=== PATIENT | female | born 1955 | race Caucasian/White ===

== ENCOUNTER 2019-03-28 06:58 | Outpatient (RCR) | payer OTHER, SELFPAY ==
[2019-01-22 07:49] LABS: INR 2.4; Prothrombin Time 25.3 Seconds (9.64-11.0)
[2019-02-21 07:50] LABS: INR 2.6; Prothrombin Time 26.8 Seconds (9.64-11.0)
[2019-03-24 07:47] LABS: INR 1.5; Prothrombin Time 15.8 Seconds (9.64-11.0)
[2019-03-28 07:20] LABS: Prothrombin Time 21.3 Seconds (9.64-11.0)
== END 2019-04-22 23:59 | disposition home or self-care (01) ==
LOC: CHSLAB 06:58
PROVIDERS: PCP Internal Medicine; Visit Provider Internal Medicine
DX: Z79.01 Long term (current) use of anticoagulants (principal)
CPT/HCPCS: 36415; 85610

== ENCOUNTER 2019-06-25 07:35 | Outpatient (RCR) | payer OTHER, SELFPAY ==
[2019-04-25 07:36] LABS: INR 2.6; Prothrombin Time 25.9 Seconds (9.64-11.0)
[2019-05-26 07:37] LABS: INR 2.6
[2019-06-25 08:05] LABS: INR 2.6; Prothrombin Time 26.1 Seconds (9.64-11.0)
== END 2019-07-24 23:59 | disposition home or self-care (01) ==
LOC: CHSLAB 07:35
PROVIDERS: PCP Internal Medicine; Visit Provider Internal Medicine
DX: Z79.01 Long term (current) use of anticoagulants (principal)
CPT/HCPCS: 36415; 85610

== ENCOUNTER 2019-09-22 07:16 | Outpatient (RCR) | payer OTHER, SELFPAY ==
[2019-07-25 07:40] LABS: INR 3.5; Prothrombin Time 34.5 Seconds (9.64-11.0)
[2019-08-25 07:57] LABS: INR 2.5; Prothrombin Time 24.8 Seconds (9.64-11.0)
[2019-09-22 07:40] LABS: INR 3.9; Prothrombin Time 38.3 Seconds (9.64-11.0)
== END 2019-10-23 23:59 | disposition home or self-care (01) ==
LOC: CHSLAB 07:16
PROVIDERS: PCP Internal Medicine; Visit Provider Internal Medicine
DX: Z79.01 Long term (current) use of anticoagulants (principal)
CPT/HCPCS: 36415; 85610

== ENCOUNTER 2019-09-25 14:04 | Outpatient (CLI) | payer OTHER, SELFPAY | END 2019-09-25 14:05 | disposition home or self-care (01) | LOC: CHSIMG 14:05 | PROVIDERS: PCP Internal Medicine; Visit Provider Specialist | DX: I05.9 Rheumatic mitral valve disease, unspecified (principal); Z95.2 Presence of prosthetic heart valve | CPT/HCPCS: 93306 ==

== ENCOUNTER 2019-10-07 12:23 | Outpatient (CLI) | payer OTHER, SELFPAY ==
--- NOTE | 2019-10-07 12:40 | ECG_ITS ---
Measurements Intervals [place] Rate: 97 P: -79 DC: 177 QRS: 98 QRSD: 99 T: 69 QT: 387 QTc: 494 Interpretive Statements ECTOPIC ATRIAL RHYTHM CHANGES TO ATRIAL TACHYCARDIA INCOMPLETE RIGHT BUNDLE BRANCH BLOCK DELAYED PRECORDIAL R/S TRANSITION ABNORMAL ECG Electronically Signed On 10-07-2019 13:06:31 CDT by Michel Sandoval D.O.
[2019-10-07 12:41] LABS: Appearance Urine Clear (Clear); Bilirubin Urine Negative (Negative); Color Urine Yellow (Yellow); Glucose Urine UA Negative (Negative); Ketones Urine Negative (Negative); Leukocyte Esterase Ur Negative (Negative); Nitrate Urine Negative (Negative); Protein Urine Negative (Negative); Specific Grav Ur 1.015 (1.010-1.020); Urobilinogen Urine 0.2 mg/dL (0.2-1.0); pH Urine 5.5 (5.0-8.0)
[2019-10-07 12:43] LABS: Basophils Absolute Auto 0.03 K/mm3 (0.00-0.10); Basophils Percent Auto 0.6 % (0.0-1.0); Eosinophils Absolute Auto 0.08 K/mm3 (0.02-0.50); Eosinophils Percent Auto 1.7 % (1.0-6.0); Hematocrit 44.3 % (35.0-49.0); Hemoglobin 14.2 g/dL (12.0-15.0); Immature Granulocyte Absolute 0.01 K/mm3 (0.00-0.00); Immature Granulocyte Percent A 0.2 % (0.0-0.0); Lymphocytes Absolute Auto 1.21 K/mm3 (1.10-4.50); Lymphocytes Percent Auto 25.1 % (18.0-42.0); Mean Corpuscular HGB Conc 32.1 g/dL (32.0-36.0); Mean Corpuscular Hemoglobin 30.3 pg (27.0-31.0); Mean Corpuscular Volume 94.7 fL (78.0-102.0); Mean Platelet Volume 10.3 fl (9.2-11.8); Monocytes Absolute Auto 0.26 K/mm3 (0.10-0.90); Monocytes Percent Auto 5.4 % (2.0-11.0); Neutrophils Absolute Auto 3.2 K/mm3 (1.7-7.2); Platelet Count Result 282 K/mm3 (150-420); Red Blood Count 4.68 M/mm3 (4.20-5.40); Red Cell Distribution Width 12.6 % (11.6-14.4); White Blood Count 4.8 K/mm3 (4.8-10.8)
[2019-10-07 13:06] LABS: BNP 73.2 pg/mL (0-100)
[2019-10-07 13:41] LABS: Add Urine Microscopic? YES; Blood Urine Trace-Intact (Negative); RBC Urine 0-2 /hpf (0-2)
[2019-10-07 13:42] LABS: Squamous Epithelial Cell Urine Rare /hpf (Few); WBC Urine 0-3 /hpf (0-3)
[2019-10-07 13:43] LABS: Bacteria Urine Trace /hpf
[2019-10-07 13:45] LABS: Alanine Aminotransferase 28 U/L (14-59); Albumin Level 4.4 g/dL (3.4-5.0); Alkaline Phosphatase 72 U/L (46-116); Anion Gap 10.4 mmol/L (7-16); Aspartate Amino Transferase 33 U/L (15-37); Bilirubin,Total 0.9 mg/dL (0.00-1.00); Blood Urea Nitrogen 18 mg/dL (7-18); Calcium 9.6 mg/dL (8.5-10.1); Carbon Dioxide 33 mmol/L (21-32); Chloride 102 mmol/L (98-108); Cholesterol 231 mg/dL (0-200); Estimated Glomerular Filt Rate > 60; Free T3 2.54 pg/mL (2.18-3.98); Free T4 Free Thyroxine 1.14 ng/dL (0.76-1.46); Glucose 91 mg/dL (70-99); HDL Direct 75 mg/dL (40-60); LDL Cholesterol Calculated 133 mg/dL (<130); Magnesium 2.1 mg/dL (1.8-2.4); Osmolality Calculated 293 mOsm/kg (285-295); Potassium 4.4 mmol/L (3.5-5.1); Sodium 141 mmol/L (136-145); Thyroid Stimulating Hormone 2.24 uIU/mL (0.36-3.74); Total Protein 7.2 g/dL (6.4-8.2); Triglycerides 117 mg/dL (0-150)
[2019-10-11 15:10] LABS: Gliadin AB, IgG 3 Units (<20); Reticulin IgA Negative (Negative); TTG IGA AB 1 U/mL (<4)
== END 2019-10-07 12:24 | disposition home or self-care (01) ==
LOC: CHSLAB 12:26
PROVIDERS: PCP Internal Medicine; Visit Provider Internal Medicine
DX: I34.0 Nonrheumatic mitral (valve) insufficiency (principal); I48.91 Unspecified atrial fibrillation; R19.7 Diarrhea, unspecified; R10.9 Unspecified abdominal pain
CPT/HCPCS: 36415; 80053; 80061; 81001; 83516; 83735; 83880; 84439; 84443; 84481; 85025; 85055; 86255; 93005

== ENCOUNTER 2019-10-09 07:45 | Outpatient (CLI) | payer OTHER, SELFPAY | END 2019-10-09 07:46 | disposition home or self-care (01) | PROVIDERS: PCP Internal Medicine; Visit Provider Specialist | DX: I05.9 Rheumatic mitral valve disease, unspecified (principal); Z95.2 Presence of prosthetic heart valve | CPT/HCPCS: 99199; 93308 ==

== ENCOUNTER 2019-10-10 07:15 | Outpatient (CLI) | payer OTHER, SELFPAY ==
--- NOTE | 2019-11-11 08:29 | WPDHOLTEREM ---
Holter/Event Monitor Holter/Event Monitor Date of procedure: 10/10/19 Procedure Type: 30 day event monitor Indications: Palpitations
--- NOTE | 2019-11-19 09:39 | WPDHOLTEREM ---
Holter/Event Monitor Holter/Event Monitor Date of procedure: 10/10/19 Procedure Type: 30 day event monitor Indications: Palpitations Conclusion: 1. 27 days event monitor between 10/10/19-11/08/19. There are 72 available transmissions for analysis. 2. Predominant rhythm is sinus rhythm with intermittent PSVT and PAT. HR range 50-157 bpm; average HR 84 bpm. 3. There are intermittent premature supraventricular complexes with total burden of 5%. Atrial tachycardia or supraventricular tachycardia occurred 14 times with fastest at 157 bpm and the longest lasting 40 beats. 4. There are occasional premature ventricular complexes with total burden of 1%. No ventricular tachycardia. 5. No significant pauses greater than 2 seconds. 6. Patient reports 28 symptoms of shortness of breath, skipped beats, lightheadedness, heart racing, and symptoms other than listed which demonstrate sinus rhythm, HR range 82-143 bpm and 6 episodes of PSVT/atrial tachycardia with HR range 122-138 bpm.
== END 2019-10-10 07:16 | disposition home or self-care (01) ==
PROVIDERS: PCP Internal Medicine; Visit Provider Specialist
DX: R00.2 Palpitations (principal)
CPT/HCPCS: 93270

== ENCOUNTER 2019-10-17 07:29 | Outpatient (CLI) | payer OTHER, SELFPAY ==
--- NOTE | ~2019-10-17 | CT_ITS ---
EXAMINATION: CT abdomen pelvis w con DATE: 10/17/2019 08:17 INDICATION: Change in bowel habits. Intermittent constipation and diarrhea. Bilateral anterior pelvic pain. TECHNIQUE: Computed tomography (CT) of the abdomen and pelvis was performed with 100 cc Omnipaque 350 intravenous contrast. Automated exposure control and iterative reconstruction technique were employe d. Exam dose: 211.61 mGy-cm total exam DLP. COMPARISON: 11/06/2015 CT abdomen pelvis FINDINGS: Mild emphysematous changes are suggested. No infiltrate or consolidation in the lower lung zones. Heart size is within normal range. No pericardial or pleural effusion. Approximately 11.5 mm posterior right hepatic dome hypoattenuating lesion. There is an approximately 7.5 mm hypoattenuating lesion of the medial segment of the left hepatic lobe. These lesions were pres ent at on 11/06/2015 CT abdomen pelvis examination. These are most likely hepatic cysts or hemangiomas if there is no known malignancy. No other hepatic space-occupying mass lesion is evident. The gallbladder is present. No bile duct or pancreatic duct dilatation. No pancreatic mass lesion or calcification. No splenic mass lesion or splenomegaly. There is an approximately 7.6 cm upper pole left cyst with internal calcification of the wall again n oted. No renal mass lesion is evident. No urinary tract calculus or hydroureteronephrosis. The urinary blad roopa is unremarkable. Status post hysterectomy. There is atherosclerotic calcification but normal caliber of the abdominal aorta; no abdominal aortic aneurysm. No intraperitoneal or retroperitoneal or pelvic mass lesion or adenopathy or ascites is evident. Diverticulosis of the colon; no CT evidence of diverticulitis is detected. No bowel obstruction or in traperitoneal free air is evident. No suspicious osteolytic or osteoblastic lesions are noted. IMPRESSION: 2 chronic hypoattenuating hepatic lesions, statistically most likely cysts or hemangioma s in the absence of any known malignancy 7.6 cm upper pole left renal cyst Status post hysterectomy Diverticulosis of the colon Reviewed, dictated and finalized at Location A. Reviewed, dictated and finalized at location A. IMPRESSION: 2 chronic hypoattenuating hepatic lesions, statistically most like ly cysts or hemangiomas in the absence of any known malignancy 7.6 cm upper pole left renal cyst Status post hysterectomy Diverticulosis of the colon
== END 2019-10-17 07:30 | disposition home or self-care (01) ==
PROVIDERS: PCP Internal Medicine; Visit Provider Internal Medicine
DX: R19.4 Change in bowel habit (principal); R10.2 Pelvic and perineal pain
CPT/HCPCS: 74177; Q9965

== ENCOUNTER 2020-01-20 07:15 | Outpatient (RCR) | payer OTHER, SELFPAY ==
[2019-10-24 07:34] LABS: Prothrombin Time 30.3 Seconds (9.64-11.0)
[2019-11-25 07:32] LABS: INR 3.8; Prothrombin Time 37.8 Seconds (9.64-11.0)
[2019-12-09 07:55] LABS: Prothrombin Time 39.8 Seconds (9.64-11.0)
[2020-01-20 07:45] LABS: INR 2.6; Prothrombin Time 25.6 Seconds (9.64-11.0)
== END 2020-01-22 23:59 | disposition home or self-care (01) ==
LOC: CHSLAB 07:15
PROVIDERS: PCP Internal Medicine; Visit Provider Internal Medicine
DX: Z79.01 Long term (current) use of anticoagulants (principal)
CPT/HCPCS: 36415; 85610

== ENCOUNTER 2020-04-05 07:05 | Outpatient (CLI) | payer OTHER, MEDICARE, SELFPAY ==
--- NOTE | ~2020-04-05 | MM_ITS ---
EXAMINATION: MM screening negro BI w pan HISTORY: Screening TECHNIQUE: Craniocaudal and mediolateral oblique 3-D tomosynthesis images were obtained and synthetic 2-D images were generated. CAD analysis was submitted and interpreted. COMPARISON: Comparison to multiple prior studies sequentially, with oldest reviewed study dated 10/03. BREAST PARENCHYMAL COMPOSITION: The breasts are extremely dense, which lowers the sensitivity of mamm ography. FINDINGS: There is no evidence of suspicious mass, calcification, or architectural distortion to sugg est malignancy in either breast. There has been no suspicious interval change. IMPRESSION: 1. No mammographic evidence of malignancy. 2. Recommend routine screening mammography in one year. BI-RADS Category 1: Negative Reviewed, dictated and finalized at location A. 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
== END 2020-04-05 07:06 | disposition home or self-care (01) ==
LOC: CHSIMG 07:06
PROVIDERS: PCP Internal Medicine; Visit Provider Internal Medicine
DX: Z12.31 Encounter for screening mammogram for malignant neoplasm of breast (principal)
CPT/HCPCS: 77063; 77067

== ENCOUNTER 2020-04-26 09:51 | Outpatient (RCR) | payer OTHER, MEDICARE, SELFPAY ==
[2020-02-18 08:02] LABS: INR 2.6; Prothrombin Time 26.8 Seconds (9.50-12.10)
[2020-03-24 08:02] LABS: INR 1.5; Prothrombin Time 16.1 Seconds (9.50-12.10)
[2020-03-31 08:04] LABS: INR 2.2; Prothrombin Time 22.9 Seconds (9.50-12.10)
[2020-04-26 10:17] LABS: INR 2.8; Prothrombin Time 28.3 Seconds (9.50-12.10)
== END 2020-05-18 23:59 | disposition home or self-care (01) ==
LOC: CHSLAB 09:51
PROVIDERS: PCP Internal Medicine; Visit Provider Internal Medicine
DX: Z79.01 Long term (current) use of anticoagulants (principal)
CPT/HCPCS: 36415; 85610

== ENCOUNTER 2020-08-17 08:28 | Outpatient (RCR) | payer OTHER, MEDICARE, SELFPAY ==
[2020-05-24 07:50] LABS: INR 2.9; Prothrombin Time 29.5 Seconds (9.50-12.10)
[2020-06-22 10:46] LABS: INR 1.8; Prothrombin Time 18.8 Seconds (9.50-12.10)
[2020-06-29 09:08] LABS: INR 2.1; Prothrombin Time 21.3 Seconds (9.50-12.10)
[2020-07-20 08:28] LABS: INR 2.6; Prothrombin Time 26.8 Seconds (9.50-12.10)
[2020-08-17 08:51] LABS: Prothrombin Time 20.2 Seconds (9.50-12.10)
== END 2020-08-22 23:59 | disposition home or self-care (01) ==
LOC: CHSLAB 08:28
PROVIDERS: PCP Internal Medicine; Visit Provider Internal Medicine
DX: Z79.01 Long term (current) use of anticoagulants (principal)
CPT/HCPCS: 36415; 85610

== ENCOUNTER 2020-10-06 08:02 | Outpatient (CLI) | payer OTHER, MEDICARE, SELFPAY ==
--- NOTE | 2020-11-08 14:09 | WPDHOLTEREM ---
Holter/Event Monitor Holter/Event Monitor Date of procedure: 10/06/20 Holter/Event Procedure: Event Monitor Indications: Syncope Conclusion: 1. 26 days event monitor between 10/06/20-11/04/20. There are 59 available transmissions for analysis. 2. Predominant rhythm is sinus rhythm. HR range 50-151 bpm; average HR is 78 bpm. 3. There are occasional premature supraventricular complexes with total burden of 2%. There are 6 runs of atrial tachycardia, fastest at 143 bpm and longest lasting 31 seconds. 4. There are occasional premature ventricular complexes with total burden of 1%. No ventricular tachycardia. 5. No significant pauses greater than 2 seconds. 6. Patient reports 11 episodes of symptoms of heart racing, shortness of breath, lightheadedness and symptoms other than listed which demonstrate sinus rhythm, HR range 84-127 bpm and 4 episodes of atrial tachycardia at 143 bpm.
== END 2020-10-06 08:03 | disposition home or self-care (01) ==
LOC: CHSCARD 08:05
PROVIDERS: PCP Internal Medicine; Visit Provider Internal Medicine
DX: R55 Syncope and collapse (principal); I48.91 Unspecified atrial fibrillation
CPT/HCPCS: 99199

== ENCOUNTER 2020-10-21 12:29 | Outpatient (CLI) | payer MEDICARE, SELFPAY ==
[2020-10-21 12:54] LABS: Appearance Urine Clear (Clear); Bilirubin Urine Negative (Negative); Color Urine Light Yellow (Yellow); Glucose Urine UA Negative (Negative); Ketones Urine Negative (Negative); Leukocyte Esterase Ur Negative (Negative); Nitrate Urine Negative (Negative); Protein Urine Negative (Negative); Urobilinogen Urine 0.2 mg/dL (0.2-1.0); pH Urine 5.5 (5.0-8.0)
[2020-10-21 12:57] LABS: Add Urine Microscopic? YES; Bacteria Urine Trace /hpf; Blood Urine Trace-lysed (Negative); RBC Urine None seen /hpf (0-2); Squamous Epithelial Cell Urine Rare /hpf (Few); WBC Urine None seen /hpf (0-3)
[2020-10-21 13:00] LABS: Basophils Absolute Auto 0.02 K/mm3 (0.00-0.10); Basophils Percent Auto 0.4 % (0.0-1.0); Eosinophils Absolute Auto 0.05 K/mm3 (0.02-0.50); Hematocrit 44.2 % (35.0-42.0); Immature Granulocyte Absolute 0.01 K/mm3 (0.00-0.00); Immature Granulocyte Percent A 0.2 % (0.0-0.0); Lymphocytes Absolute Auto 1.36 K/mm3 (1.10-4.50); Lymphocytes Percent Auto 27.1 % (18.0-42.0); Mean Corpuscular HGB Conc 31.7 g/dL (32.0-36.0); Mean Corpuscular Hemoglobin 30.8 pg (27.0-31.0); Mean Corpuscular Volume 97.1 fL (78.0-102.0); Mean Platelet Volume 10.4 fl (9.2-11.8); Monocytes Absolute Auto 0.27 K/mm3 (0.10-0.90); Monocytes Percent Auto 5.4 % (2.0-11.0); Neutrophils Absolute Auto 3.3 K/mm3 (1.7-7.2); Neutrophils Percent Auto 65.9 % (50.0-70.0); Platelet Count Result 251 K/mm3 (150-420); Red Blood Count 4.55 M/mm3 (4.20-5.40)
[2020-10-21 13:07] LABS: INR 2.6; Prothrombin Time 26.8 Seconds (9.50-12.10)
[2020-10-21 13:38] LABS: Alanine Aminotransferase 40 U/L (14-59); Albumin Level 4.5 g/dL (3.4-5.0); Alkaline Phosphatase 91 U/L (46-116); Anion Gap 9 mmol/L (8-16); Aspartate Amino Transferase 37 U/L (15-37); Blood Urea Nitrogen 18 mg/dL (7-18); Calcium 8.8 mg/dL (8.5-10.1); Carbon Dioxide 30 mmol/L (21-32); Chloride 105 mmol/L (98-108); Cholesterol 237 mg/dL (0-200); Estimated Glomerular Filt Rate 57; Free T3 2.58 pg/mL (2.18-3.98); Free T4 Free Thyroxine 0.92 ng/dL (0.76-1.46); Glucose 92 mg/dL (70-99); HDL Direct 78 mg/dL (40-60); LDL Cholesterol Calculated 134 mg/dL (<130); Osmolality Calculated 299 mOsm/kg (285-295); Potassium 4.1 mmol/L (3.5-5.1); Sodium 144 mmol/L (136-145); Total Protein 7.3 g/dL (6.4-8.2); Triglycerides 126 mg/dL (0-150); Vitamin B12 503 pg/mL (193-986)
[2020-10-21 13:59] LABS: Thyroid Stimulating Hormone 1.68 uIU/mL (0.36-3.74)
[2020-10-24 15:25] LABS: RPR Screen Non-Reactive (Non-Reactive)
[2020-10-25 14:47] LABS: Vitamin D 25 Hydroxy 53 ng/mL (30-100)
== END 2020-10-21 12:30 | disposition home or self-care (01) ==
LOC: CHSIMG 12:32
PROVIDERS: PCP Internal Medicine; Visit Provider Internal Medicine
DX: G31.84 Mild cognitive impairment of uncertain or unknown etiology (principal); M81.0 Age-related osteoporosis without current pathological fracture; I34.0 Nonrheumatic mitral (valve) insufficiency; I48.91 Unspecified atrial fibrillation; Z13.6 Encounter for screening for cardiovascular disorders
CPT/HCPCS: 36415; 80053; 80061; 81001; 82306; 82607; 84439; 84443; 84481; 85025; 85610; 86038; 86039; 86592; 93306

== ENCOUNTER 2020-11-01 08:41 | Outpatient (CLI) | payer OTHER, MEDICARE, SELFPAY ==
--- NOTE | ~2020-11-01 | DEXA_ITS ---
Bone Density Report Name: Meghann Barbosa Age: 65 Sex: Female Ethnicity: White Date of : 1955 Indication: osteopenia; monitoring treatment; hysterectomy; Referring Provider: Aydee Reese Study: Bone densitometry was performed. Exam Date: November 01, 2020 Accession number: [id number] Bone Density: Region BMD T-score Z-score Classification AP Spine(L1-L4) 0.866 -1.6 0.2 Osteopenia Femoral Neck (Left) 0.728 -1.1 0.5 Osteopenia Total Hip (Left) 0.821 -1.0 0.3 Normal Femoral Neck (Right) 0.694 -1.4 0.2 Osteopenia Total Hip (Right) 0.779 -1.3 -0.1 Osteopenia Femoral Neck Mean 0.711 -1.2 0.3 Osteopenia Total Hip Mean 0.800 -1.2 0.1 Osteopenia World Health Organization criteria for BMD impression classify patients as: Normal (T-score at or above -1.0), Osteopenia (T-score between -1.0 and -2.5), or Osteoporosis (T-score at or below -2.5). 10-year Fracture Risk: FRAX not reported because: Treated for osteoporosis Previous Exams: Region Exam Age BMD T-score BMD Change BMD Change Date g/cm2 vs Baseline vs Previous AP Spine (L1-L4) 11/01/2020 65 0.866 -1.6 -0.195 (-18.4% -0.018 (-2.0%) 10/31/2018 63 0.884 -1.5 -0.177 (-16.7% -0.016 (-1.8%) 10/06/2016 61 0.901 -1.3 -0.161 (-15.1% -0.073 (-7.5%) 09/26/2013 58 0.973 -0.7 -0.088 (-8.3%) -0.090 (-8.4%) 10/01/2009 54 1.063 0.1 0.002 (0.2%) 0.002 (0.2%) 01/18/2007 52 1.061 0.1 Total Hip(Left) 11/01/2020 65 0.821 -1.0 -0.113 (-12.1% 0.072 (9.6%)# 10/31/2018 63 0.750 -1.6 -0.185 (-19.8% -0.048 (-6.0%) 10/06/2016 61 0.798 -1.2 -0.137 (-14.6% -0.042 (-5.0%) 09/26/2013 58 0.840 -0.8 -0.094 (-10.1% -0.081 (-8.8%) 10/01/2009 54 0.921 -0.2 -0.013 (-1.4%) -0.013 (-1.4%) 01/18/2007 52 0.935 -0.1 Total Hip(Right) 11/01/2020 65 0.779 -1.3 -0.126 (-13.9% 0.064 (8.9%)# 10/31/2018 63 0.715 -1.9 -0.190 (-20.9% -0.063 (-8.1%) 09/26/2013 58 0.779 -1.3 -0.126 (-13.9% -0.108 (-12.1% 10/01/2009 54 0.886 -0.5 -0.018 (-2.0%) -0.018 (-2.0%) 01/18/2007 52 0.905 -0.3 *Denotes significance at 95% confidence level, LSC for AP Spine = 0.022 g/cm2, LSC for Total Hip = 0.027 g/cm2 # Denotes dissimilar scan types or analysis methods Clinical Information Provided by Patient: Is being treated for osteoporosis Has used the following medications: Vitamin D, Calcium Has the following medical conditions: Hysterectomy Patient maximum height was 66 Drinks c
== END 2020-11-01 08:42 | disposition home or self-care (01) ==
LOC: CHSIMG 08:44
PROVIDERS: PCP Internal Medicine; Visit Provider Internal Medicine
DX: R76.0 Raised antibody titer (principal); G31.84 Mild cognitive impairment of uncertain or unknown etiology; M81.0 Age-related osteoporosis without current pathological fracture; I34.0 Nonrheumatic mitral (valve) insufficiency
CPT/HCPCS: 36415; 77080; 86225

== ENCOUNTER 2020-11-29 09:11 | Outpatient (RCR) | payer OTHER, MEDICARE, SELFPAY ==
[2020-09-17 09:57] LABS: INR 2.8; Prothrombin Time 28.7 Seconds (9.50-12.10)
[2020-11-22 09:22] LABS: INR 4.4; Prothrombin Time 44.1 Seconds (9.50-12.10)
[2020-11-29 09:31] LABS: Prothrombin Time 30.1 Seconds (9.50-12.10)
== END 2020-12-16 23:59 | disposition home or self-care (01) ==
LOC: CHSLAB 09:11
PROVIDERS: PCP Internal Medicine; Visit Provider Internal Medicine
DX: Z79.01 Long term (current) use of anticoagulants (principal)
CPT/HCPCS: 36415; 85610

== ENCOUNTER 2021-03-24 10:23 | Outpatient (RCR) | payer MEDICARE, SELFPAY ==
[2020-12-28 11:52] LABS: INR 2.1; Prothrombin Time 21.4 Seconds (9.50-12.10)
[2021-01-25 08:30] LABS: INR 3.2; Prothrombin Time 32.2 Seconds (9.50-12.10)
[2021-02-24 08:54] LABS: INR 2.1; Prothrombin Time 21.9 Seconds (9.50-12.10)
[2021-03-24 11:01] LABS: INR 2.4; Prothrombin Time 24.6 Seconds (9.50-12.10)
== END 2021-03-28 23:59 | disposition home or self-care (01) ==
LOC: CHSLAB 10:23
PROVIDERS: PCP Internal Medicine; Visit Provider Internal Medicine
DX: Z79.01 Long term (current) use of anticoagulants (principal)
CPT/HCPCS: 36415; 85610

== ENCOUNTER 2021-04-27 08:26 | Outpatient (CLI) | payer MEDICARE, SELFPAY ==
--- NOTE | ~2021-04-27 | MM_ITS ---
EXAMINATION: MM screening negro BI w pan HISTORY: Screening TECHNIQUE: Craniocaudal and mediolateral oblique 3-D tomosynthesis images were obtained and synthetic 2-D images were generated. CAD analysis was submitted and interpreted. COMPARISON: Comparison to multiple prior studies sequentially, with oldest reviewed study dated 10/03. BREAST PARENCHYMAL COMPOSITION: The breasts are extremely dense, which lowers the sensitivity of mamm ography FINDINGS: There is no evidence of suspicious mass, calcification, or architectural distortion to sugg est malignancy in either breast. There has been no suspicious interval change. IMPRESSION: 1. No mammographic evidence of malignancy. 2. Recommend routine screening mammography in one year. BI-RADS Category 1: Negative Reviewed, dictated and finalized at location A. TECHNICIAN
[2021-04-27 08:55] LABS: INR 3.4; Prothrombin Time 34.5 Seconds (9.50-12.10)
== END 2021-04-27 08:27 | disposition home or self-care (01) ==
LOC: CHSIMG 08:27
PROVIDERS: PCP Internal Medicine; Visit Provider Internal Medicine
DX: Z79.01 Long term (current) use of anticoagulants (principal); Z12.31 Encounter for screening mammogram for malignant neoplasm of breast
CPT/HCPCS: 36415; 77063; 77067; 85610

== ENCOUNTER 2021-08-22 08:07 | Outpatient (RCR) | payer MEDICARE, SELFPAY ==
[2021-05-25 09:14] LABS: Prothrombin Time 20.6 Seconds (9.50-12.10)
[2021-06-22 09:01] LABS: INR 2.3; Prothrombin Time 23.6 Seconds (9.50-12.10)
[2021-07-25 09:37] LABS: INR 2.9; Prothrombin Time 29.3 Seconds (9.50-12.10)
[2021-08-22 08:33] LABS: INR 2.7; Prothrombin Time 27.2 Seconds (9.50-12.10)
== END 2021-08-23 23:59 | disposition home or self-care (01) ==
LOC: CHSLAB 08:07
PROVIDERS: PCP Internal Medicine; Visit Provider Internal Medicine
DX: Z79.01 Long term (current) use of anticoagulants (principal)
CPT/HCPCS: 36415; 85610

== ENCOUNTER 2021-11-30 15:46 | Outpatient (RCR) | payer MEDICARE, SELFPAY ==
[2021-09-21 09:10] LABS: INR 1.7; Prothrombin Time 17.5 Seconds (9.50-12.10)
[2021-09-28 10:01] LABS: INR 1.8; Prothrombin Time 18.4 Seconds (9.50-12.10)
[2021-09-28 10:55] LABS: Add Urine Microscopic? NO; Appearance Urine Clear (Clear); Bilirubin Urine Negative (Negative); Blood Urine Negative (Negative); Color Urine Light Yellow (Yellow); Glucose Urine UA Negative (Negative); Ketones Urine Negative (Negative); Leukocyte Esterase Ur Negative LEU/UL (Negative); Nitrate Urine Negative (Negative); Protein Urine Negative (Negative); Specific Grav Ur <= 1.005 (1.010-1.020); Urobilinogen Urine 0.2 mg/dL (0.2-1.0)
[2021-09-28 10:55] LABS: Basophils Absolute Auto 0.02 K/mm3 (0.00-0.10); Basophils Percent Auto 0.5 % (0.0-1.0); Eosinophils Absolute Auto 0.04 K/mm3 (0.02-0.50); Eosinophils Percent Auto 0.9 % (1.0-6.0); Hemoglobin 13.5 g/dL (11.7-13.8); Immature Granulocyte Absolute 0.01 K/mm3 (0.00-0.00); Immature Granulocyte Percent A 0.2 % (0.0-0.0); Lymphocytes Absolute Auto 1.03 K/mm3 (1.10-4.50); Lymphocytes Percent Auto 23.6 % (18.0-42.0); Mean Corpuscular HGB Conc 32.1 g/dL (32.0-36.0); Mean Corpuscular Hemoglobin 30.8 pg (27.0-31.0); Mean Corpuscular Volume 95.9 fL (78.0-102.0); Mean Platelet Volume 11.1 fl (9.2-11.8); Monocytes Percent Auto 4.6 % (2.0-11.0); Neutrophils Absolute Auto 3.1 K/mm3 (1.7-7.2); Neutrophils Percent Auto 70.2 % (50.0-70.0); Platelet Count Result 221 K/mm3 (150-420); Red Blood Count 4.38 M/mm3 (4.20-5.40); Red Cell Distribution Width 12.6 % (11.6-14.4); White Blood Count 4.4 K/mm3 (4.8-10.8)
[2021-09-28 11:08] LABS: Alanine Aminotransferase 31 U/L (14-59); Albumin Level 4.3 g/dL (3.4-5.0); Alkaline Phosphatase 86 U/L (46-116); Anion Gap 8 mmol/L (8-16); Aspartate Amino Transferase 31 U/L (15-37); Bilirubin,Total 0.8 mg/dL (0.00-1.00); Blood Urea Nitrogen 14 mg/dL (7-18); Calcium 9.2 mg/dL (8.5-10.1); Carbon Dioxide 28 mmol/L (21-32); Chloride 101 mmol/L (98-108); Cholesterol 239 mg/dL (0-200); Estimated Glomerular Filt Rate > 60; Glucose 86 mg/dL (70-99); HDL Direct 82 mg/dL (40-60); LDL Cholesterol Calculated 141 mg/dL (<130); Osmolality Calculated 283 mOsm/kg (285-295); Potassium 4.3 mmol/L (3.5-5.1); Sodium 137 mmol/L (136-145); Total Protein 6.7 g/dL (6.4-8.2); Triglycerides 81 mg/dL (0-150)
[2021-10-02 15:15] LABS: Vitamin D 25 Hydroxy 55 ng/mL (30-100)
[2021-10-05 09:01] LABS: INR 2.7; Prothrombin Time 27.3 Seconds (9.50-12.10)
[2021-11-02 08:49] LABS: INR 3.3; Prothrombin Time 32.5 Seconds (9.50-12.10)
[2021-11-30 16:11] LABS: INR 3.2; Prothrombin Time 31.6 Seconds (9.50-12.10)
== END 2021-12-20 23:59 | disposition home or self-care (01) ==
LOC: CHSLAB 15:46
PROVIDERS: PCP Internal Medicine; Visit Provider Internal Medicine
DX: Z79.01 Long term (current) use of anticoagulants (principal); M81.0 Age-related osteoporosis without current pathological fracture; E78.5 Hyperlipidemia, unspecified; N39.0 Urinary tract infection, site not specified
CPT/HCPCS: 36415; 80053; 80061; 81003; 82306; 85025; 85610

== ENCOUNTER 2022-02-15 08:55 | Outpatient (RCR) | payer MEDICARE, SELFPAY ==
[2021-12-28 09:14] LABS: INR 2.5; Prothrombin Time 25.5 Seconds (9.50-12.10)
[2022-01-25 09:12] LABS: INR 2.6; Prothrombin Time 26.8 Seconds (9.50-12.10)
[2022-02-15 09:48] LABS: INR 3.1
== END 2022-03-28 23:59 | disposition home or self-care (01) ==
LOC: CHSLAB 08:55
PROVIDERS: PCP Internal Medicine; Visit Provider Internal Medicine
DX: Z51.81 Encounter for therapeutic drug level monitoring (principal); Z79.01 Long term (current) use of anticoagulants
CPT/HCPCS: 36415; 85610

== ENCOUNTER 2022-05-02 08:05 | Outpatient (CLI) | payer MEDICARE, SELFPAY ==
--- NOTE | ~2022-05-02 | MM_ITS ---
EXAMINATION: MM screening negro BI w pan HISTORY: Screening mammogram TECHNIQUE: Craniocaudal and mediolateral oblique 3-D tomosynthesis images were obtained and synthetic 2-D images were generated. CAD analysis was submitted and interpreted. COMPARISON: April 27, 2021, April 05, 2020, April 03, 2019 lateral screening mammogram examina tions BREAST PARENCHYMAL COMPOSITION: The breasts are extremely dense, which lowers the sensitivity of mamm ography. FINDINGS: There is no evidence of suspicious mass, calcification, or architectural distortion to sugg est malignancy in either breast. There has been no suspicious interval change. IMPRESSION: 1. No mammographic evidence of malignancy. 2. Recommend routine screening mammography in one year. BI-RADS Category 1: Negative Reviewed, dictated and finalized at location A. 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
[2022-05-02 08:44] LABS: INR 4.7; Prothrombin Time 45.6 Seconds (9.50-12.10)
== END 2022-05-02 08:06 | disposition home or self-care (01) ==
LOC: CHSIMG 08:07
PROVIDERS: PCP Internal Medicine; Visit Provider Internal Medicine
DX: Z12.31 Encounter for screening mammogram for malignant neoplasm of breast (principal); Z79.01 Long term (current) use of anticoagulants
CPT/HCPCS: 36415; 77063; 77067; 85610

== ENCOUNTER 2022-06-08 09:58 | Outpatient (RCR) | payer MEDICARE, SELFPAY ==
[2022-03-29 09:45] LABS: INR 2.4; Prothrombin Time 24.8 Seconds (9.50-12.10)
[2022-05-09 09:18] LABS: INR 4.3; Prothrombin Time 41.9 Seconds (9.50-12.10)
[2022-05-16 09:49] LABS: INR 3.3; Prothrombin Time 32.9 Seconds (9.50-12.10)
[2022-06-08 10:23] LABS: INR 2.3; Prothrombin Time 23.3 Seconds (9.50-12.10)
== END 2022-06-27 23:59 | disposition home or self-care (01) ==
LOC: CHSLAB 09:58
PROVIDERS: PCP Internal Medicine; Visit Provider Internal Medicine
DX: Z51.81 Encounter for therapeutic drug level monitoring (principal); Z79.01 Long term (current) use of anticoagulants
CPT/HCPCS: 36415; 85610

== ENCOUNTER 2022-08-15 07:49 | Outpatient (RCR) | payer MEDICARE, SELFPAY ==
[2022-07-07 09:00] LABS: INR 2.3; Prothrombin Time 23.9 Seconds (9.50-12.10)
[2022-08-08 09:17] LABS: INR 3.7; Prothrombin Time 36.8 Seconds (9.50-12.10)
[2022-08-15 08:11] LABS: INR 2.6; Prothrombin Time 26.4 Seconds (9.50-12.10)
== END 2022-10-05 23:59 | disposition home or self-care (01) ==
LOC: CHSLAB 07:49
PROVIDERS: PCP Internal Medicine; Visit Provider Internal Medicine
DX: Z51.81 Encounter for therapeutic drug level monitoring (principal); Z79.01 Long term (current) use of anticoagulants
CPT/HCPCS: 36415; 85610

== ENCOUNTER 2022-09-14 09:17 | Outpatient (CLI) | payer MEDICARE, SELFPAY ==
[2022-09-14 09:56] LABS: Hematocrit 43.6 % (35.0-42.0); Hemoglobin 13.9 g/dL (11.7-13.8); Mean Corpuscular HGB Conc 31.9 g/dL (32.0-36.0); Mean Corpuscular Hemoglobin 30.8 pg (27.0-31.0); Mean Corpuscular Volume 96.5 fL (78.0-102.0); Mean Platelet Volume 10.8 fl (9.2-11.8); Platelet Count Result 230 K/mm3 (150-420); Red Blood Count 4.52 M/mm3 (4.20-5.40); Red Cell Distribution Width 12.7 % (11.6-14.4); White Blood Count 3.3 K/mm3 (4.8-10.8)
[2022-09-14 09:58] LABS: Appearance Urine Clear (Clear); Bilirubin Urine Negative (Negative); Blood Urine Negative (Negative); Color Urine Light Yellow (Yellow); Glucose Urine UA Negative (Negative); Ketones Urine Negative (Negative); Leukocyte Esterase Ur Negative LEU/UL (Negative); Nitrate Urine Negative (Negative); Protein Urine Negative (Negative); Specific Grav Ur <= 1.005 (1.010-1.020); Urobilinogen Urine 0.2 mg/dL (0.2-1.0); pH Urine 5.5 (5.0-8.0)
[2022-09-14 10:10] LABS: INR 2.3; Prothrombin Time 23.5 Seconds (9.50-12.10)
[2022-09-14 10:36] LABS: Add Urine Microscopic? NO
[2022-09-14 10:39] LABS: Alanine Aminotransferase 47 U/L (14-59); Albumin Level 4.1 g/dL (3.4-5.0); Alkaline Phosphatase 85 U/L (46-116); Anion Gap 8 mmol/L (8-16); Aspartate Amino Transferase 50 U/L (15-37); Bilirubin,Total 0.9 mg/dL (0.00-1.00); Blood Urea Nitrogen 10 mg/dL (7-18); Calcium 8.9 mg/dL (8.5-10.1); Carbon Dioxide 30 mmol/L (21-32); Chloride 105 mmol/L (98-108); Cholesterol 213 mg/dL (0-200); Estimated Glomerular Filt Rate > 60; Glucose 87 mg/dL (70-99); HDL Direct 75 mg/dL (40-60); LDL Cholesterol Calculated 113 mg/dL (<130); Osmolality Calculated 294 mOsm/kg (285-295); Potassium 4.5 mmol/L (3.5-5.1); Sodium 143 mmol/L (136-145); Total Protein 6.9 g/dL (6.4-8.2); Triglycerides 123 mg/dL (0-150)
[2022-09-14 11:12] LABS: Band Neutrophils Percent 0 % (0-6); Basophils Absolute Manual 0.03 K/mm3 (0-0.1); Basophils Percent Manual 1 % (0-1); Eosinophils Absolute Manual 0.03 K/mm3 (0.02-0.5); Eosinophils Percent Manual 1 % (1-6); Lymphocytes Absolute Manual 0.99 K/mm3 (1.1-4.5); Lymphocytes Percent Manual 30 % (18-44); Monocytes Absolute Manual 0.23 K/mm3 (0.1-0.90); Monocytes Percent Manual 7 % (3-9); Neutrophils Absolute Manual 2.01 K/mm3 (1.7-7.2); Neutrophils Percent Manual 61 % (46-73); Platelet Estimate Adequate (Adequate); Total Cells Counted 100
[2022-09-17 07:50] LABS: Vitamin D 25 Hydroxy 47 ng/mL (30-100)
== END 2022-09-14 09:18 | disposition home or self-care (01) ==
LOC: CHSLAB 09:25
PROVIDERS: PCP Internal Medicine; Visit Provider Internal Medicine
DX: N39.0 Urinary tract infection, site not specified (principal); Z79.01 Long term (current) use of anticoagulants; M81.0 Age-related osteoporosis without current pathological fracture; E78.2 Mixed hyperlipidemia
CPT/HCPCS: 36415; 80053; 80061; 81003; 82306; 85025; 85610

== ENCOUNTER 2022-11-17 08:12 | Outpatient (CLI) | payer MEDICARE, SELFPAY ==
--- NOTE | ~2022-11-17 | DEXA_ITS ---
Bone Density Report Name: PETER TOVAR Age: 67 Sex: Female Ethnicity: White Date of : 1955 Indication: postmenopausal; screening for osteoporosis; hysterectomy; Referring Provider: Aydee Reese Study: Bone densitometry was performed. Exam Date: November 17, 2022 Accession number: [id number] Bone Density: Region BMD T-score Z-score Classification AP Spine(L1-L4) 0.874 -1.6 0.4 Osteopenia Femoral Neck (Left) 0.710 -1.3 0.4 Osteopenia Total Hip (Left) 0.858 -0.7 0.7 Normal Femoral Neck (Right) 0.740 -1.0 0.7 Normal Total Hip (Right) 0.851 -0.7 0.6 Normal Femoral Neck Mean 0.725 -1.1 0.6 Osteopenia Total Hip Mean 0.854 -0.7 0.7 Normal World Health Organization criteria for BMD impression classify patients as: Normal (T-score at or above -1.0), Osteopenia (T-score between -1.0 and -2.5), or Osteoporosis (T-score at or below -2.5). 10-year Fracture Risk: FRAX not reported because: Treated for osteoporosis Clinical Information Provided by Patient: Is being treated for osteoporosis Has used the following medications: Fosamax (i.e. alendronate), Vitamin D Has the following medical conditions: Hysterectomy Patient maximum height was 66 Menopause Age: 50 Drinks caffeinated beverages Onset of menses at age 13 Number of children 3 Impression: The patient has low bone mass, based on the Total Spine T-score. Discussion: It is important to ask patients whether they are taking their medications and to encourage continued and appropriate compliance with their osteoporosis therapies to reduce fracture risk. It is also important to review their risk factors and encourage appropriate calcium and vitamin D intakes, exercise, fall prevention and other lifestyle measures. Follow-Up: Consider a repeat BMD and Vertebral Fracture Assessment (VFA) exam in 2 years or sooner if medically necessary, to reassess this patient's status. Reported by: Dr. Jacoby Gramajo on 11/17/2022 8:36:00 AM. Reviewed, dictated and finalized at location A. PUNEET
== END 2022-11-17 08:13 | disposition home or self-care (01) ==
LOC: CHSIMG 08:14
PROVIDERS: PCP Internal Medicine; Visit Provider Internal Medicine
DX: Z78.0 Asymptomatic menopausal state (principal); M85.89 Other specified disorders of bone density and structure, multiple sites
CPT/HCPCS: 77080

== ENCOUNTER 2022-11-30 08:25 | Outpatient (RCR) | payer MEDICARE, SELFPAY ==
[2022-10-19 09:24] LABS: INR 1.6; Prothrombin Time 16.8 Seconds (9.50-12.10)
[2022-10-26 09:46] LABS: INR 1.8; Prothrombin Time 18.9 Seconds (9.50-12.10)
[2022-11-02 09:16] LABS: INR 2.3; Prothrombin Time 23.5 Seconds (9.50-12.10)
[2022-11-30 08:55] LABS: INR 3.2; Prothrombin Time 32.6 Seconds (9.50-12.10)
== END 2023-01-17 23:59 | disposition home or self-care (01) ==
LOC: CHSLAB 08:25
PROVIDERS: PCP Internal Medicine; Visit Provider Internal Medicine
DX: Z51.81 Encounter for therapeutic drug level monitoring (principal); Z79.01 Long term (current) use of anticoagulants
CPT/HCPCS: 36415; 85610

== ENCOUNTER 2022-12-28 09:41 | Outpatient (CLI) | payer MEDICARE, SELFPAY ==
[2022-12-28 10:34] LABS: INR 2.8; Prothrombin Time 28.9 Seconds (9.50-12.10)
[2022-12-28 12:04] LABS: Alanine Aminotransferase 42 U/L (14-59); Alkaline Phosphatase 84 U/L (46-116); Anion Gap 11 mmol/L (8-16); Aspartate Amino Transferase 34 U/L (15-37); Blood Urea Nitrogen 21 mg/dL (7-18); Calcium 9.4 mg/dL (8.5-10.1); Carbon Dioxide 29 mmol/L (21-32); Chloride 104 mmol/L (98-108); Estimated Glomerular Filt Rate 59; Glucose 100 mg/dL (70-99); Osmolality Calculated 301 mOsm/kg (285-295); Potassium 4.1 mmol/L (3.5-5.1); Sodium 144 mmol/L (136-145); Total Protein 6.6 g/dL (6.4-8.2)
== END 2022-12-28 09:42 | disposition home or self-care (01) ==
PROVIDERS: PCP Internal Medicine; Visit Provider Internal Medicine
DX: R74.01 Elevation of levels of liver transaminase levels (principal)
CPT/HCPCS: 36415; 80053; 85610

== ENCOUNTER 2023-04-23 11:18 | Outpatient (RCR) | payer MEDICARE, SELFPAY ==
[2023-01-25 10:31] LABS: Prothrombin Time 30.8 Seconds (9.50-12.10)
[2023-02-23 09:10] LABS: INR 2.7; Prothrombin Time 27.8 Seconds (9.50-12.10)
[2023-03-26 10:18] LABS: INR 4.9; Prothrombin Time 48.3 Seconds (9.50-12.10)
[2023-04-09 10:21] LABS: INR 3.8
[2023-04-23 11:51] LABS: INR 2.2; Prothrombin Time 22.3 Seconds (9.50-12.10)
== END 2023-04-25 23:59 | disposition home or self-care (01) ==
LOC: CHSLAB 11:18
PROVIDERS: PCP Internal Medicine; Visit Provider Internal Medicine
DX: Z79.01 Long term (current) use of anticoagulants (principal); Z51.81 Encounter for therapeutic drug level monitoring
CPT/HCPCS: 36415; 85610

== ENCOUNTER 2023-05-04 08:30 | Outpatient (CLI) | payer MEDICARE, SELFPAY ==
--- NOTE | ~2023-05-04 | MM_ITS ---
EXAMINATION: MM screening negro BI w pan HISTORY: Screening TECHNIQUE: Craniocaudal and mediolateral oblique 3-D tomosynthesis images were obtained and synthetic 2-D images were generated. CAD analysis was submitted and interpreted. COMPARISON: Comparison to multiple prior studies sequentially, with oldest reviewed study dated 03/23. BREAST PARENCHYMAL COMPOSITION: Dense: The breasts are extremely dense, which lowers the sensitivity of mammography. FINDINGS: There is no evidence of suspicious mass, calcification, or architectural distortion to sugg est malignancy in either breast. There has been no suspicious interval change. IMPRESSION: 1. No mammographic evidence of malignancy. 2. Recommend routine screening mammography in one year. BI-RADS Category 1: Negative Reviewed, dictated and finalized at location A. CTOR OF CURRICULUM
== END 2023-05-04 08:31 | disposition home or self-care (01) ==
LOC: CHSIMG 08:31
PROVIDERS: PCP Internal Medicine; Visit Provider Obstetrics & Gynecology
DX: Z12.31 Encounter for screening mammogram for malignant neoplasm of breast (principal)
CPT/HCPCS: 77063; 77067

== ENCOUNTER 2023-07-26 08:34 | Outpatient (RCR) | payer MEDICARE, SELFPAY ==
[2023-05-21 09:58] LABS: INR 3.3; Prothrombin Time 33.2 Seconds (9.50-12.10)
[2023-06-20 09:24] LABS: INR 3.2; Prothrombin Time 32.3 Seconds (9.50-12.1)
[2023-07-26 09:13] LABS: INR 3.5; Prothrombin Time 34.6 Seconds (9.50-12.1)
== END 2023-08-19 23:59 | disposition home or self-care (01) ==
LOC: CHSLAB 08:34
PROVIDERS: PCP Internal Medicine; Visit Provider Internal Medicine
DX: Z51.81 Encounter for therapeutic drug level monitoring (principal); Z79.01 Long term (current) use of anticoagulants
CPT/HCPCS: 36415; 85610

== ENCOUNTER 2023-09-24 08:52 | Outpatient (CLI) | payer MEDICARE, SELFPAY ==
[2023-09-24 09:07] LABS: Hematocrit 42.9 % (35.0-42.0); Mean Corpuscular HGB Conc 32.6 g/dL (32-36); Mean Corpuscular Hemoglobin 30.6 pg (27.0-31.0); Mean Corpuscular Volume 93.9 fL (78.0-102.0); Mean Platelet Volume 10.3 fl (9.2-11.8); Platelet Count Result 204 K/mm3 (150-420); Red Blood Count 4.57 M/mm3 (4.20-5.40); White Blood Count 3.7 K/mm3 (4.8-10.8)
[2023-09-24 09:14] LABS: Appearance Urine Clear (Clear); Bilirubin Urine Negative (Negative); Blood Urine Trace-intact (Negative); Color Urine Light Yellow (Yellow); Glucose Urine UA Negative (Negative); Ketones Urine Negative (Negative); Leukocyte Esterase Ur Negative LEU/UL (Negative); Nitrate Urine Negative (Negative); Protein Urine Negative (Negative); Specific Grav Ur 1.015 (1.010-1.020); Urobilinogen Urine 0.2 mg/dL (0.2-1.0); pH Urine 5.5 (5.0-8.0)
[2023-09-24 09:20] LABS: INR 3.3; Prothrombin Time 33.1 Seconds (9.50-12.1)
[2023-09-24 09:23] LABS: Add Urine Microscopic? YES; RBC Urine 0-2 /hpf (0-2); WBC Urine None seen /hpf (0-3)
[2023-09-24 09:24] LABS: Bacteria Urine Noted /hpf; Mucus Urine Moderate /lpf; Squamous Epithelial Cell Urine Few /hpf (Few)
[2023-09-24 09:25] LABS: Renal Epithelial Cells Urine Occasional /hpf
[2023-09-24 10:00] LABS: Alanine Aminotransferase 37 U/L (14-59); Albumin Level 4.1 g/dL (3.4-5.0); Alkaline Phosphatase 87 U/L (46-116); Anion Gap 8 mmol/L (4-12); Aspartate Amino Transferase 38 U/L (15-37); Bilirubin,Total 1.1 mg/dL (0.00-1.00); Blood Urea Nitrogen 15 mg/dL (7-18); Carbon Dioxide 29 mmol/L (21-32); Chloride 102 mmol/L (98-108); Cholesterol 236 mg/dL (0-200); Estimated Glomerular Filt Rate > 60; Ferritin 54 ng/mL (8-252); Glucose 111 mg/dL (70-99); HDL Direct 86 mg/dL (40-60); Iron 72 ug/dL (50-170); LDL Cholesterol Calculated 136 mg/dL (<130); Osmolality Calculated 289 mOsm/kg (285-295); Potassium 4.3 mmol/L (3.5-5.1); Sodium 139 mmol/L (136-145); Total Protein 6.7 g/dL (6.4-8.2); Triglycerides 71 mg/dL (0-150)
[2023-10-02 20:58] LABS: Vitamin D 25 Hydroxy 39 ng/mL (30-100)
== END 2023-09-24 08:53 | disposition home or self-care (01) ==
LOC: CHSLAB 08:53
PROVIDERS: PCP Internal Medicine; Visit Provider Internal Medicine
DX: E78.2 Mixed hyperlipidemia (principal); N39.0 Urinary tract infection, site not specified; D64.0 Hereditary sideroblastic anemia; M81.0 Age-related osteoporosis without current pathological fracture
CPT/HCPCS: 36415; 80053; 80061; 81001; 82306; 82728; 83540; 85027; 85610

== ENCOUNTER 2023-10-26 09:21 | Outpatient (RCR) | payer MEDICARE, SELFPAY ==
[2023-08-24 10:32] LABS: INR 2.8; Prothrombin Time 28.1 Seconds (9.50-12.1)
[2023-10-26 09:57] LABS: INR 2.7; Prothrombin Time 27.1 Seconds (9.50-12.1)
== END 2023-11-22 23:59 | disposition home or self-care (01) ==
LOC: CHSLAB 09:21
PROVIDERS: PCP Internal Medicine; Visit Provider Internal Medicine
DX: Z51.81 Encounter for therapeutic drug level monitoring (principal); Z79.01 Long term (current) use of anticoagulants
CPT/HCPCS: 36415; 85610

== ENCOUNTER 2023-11-20 08:56 | Outpatient (CLI) | payer MEDICARE, SELFPAY ==
[2023-11-20 11:21] LABS: Prothrombin Time 30.2 Seconds (9.64-11.0)
[2023-11-20 11:44] LABS: Glucose 85 mg/dL (70-99)
[2023-11-20 11:48] LABS: Hemoglobin A1C 5.5 % (<5.7)
== END 2023-11-20 08:57 | disposition home or self-care (01) ==
LOC: CHSLAB 08:58
PROVIDERS: PCP Internal Medicine; Visit Provider Internal Medicine
DX: Z79.01 Long term (current) use of anticoagulants (principal); R73.01 Impaired fasting glucose; I48.91 Unspecified atrial fibrillation
CPT/HCPCS: 36415; 82947; 83036; 85610

== ENCOUNTER 2024-03-13 08:45 | Outpatient (RCR) | payer MEDICARE, SELFPAY ==
[2023-12-25 10:44] LABS: INR 3.7; Prothrombin Time 36.5 Seconds (9.50-12.1)
[2024-01-01 11:04] LABS: INR 2.6; Prothrombin Time 26.5 Seconds (9.50-12.1)
[2024-01-31 09:36] LABS: INR 2.7; Prothrombin Time 27.2 Seconds (9.50-12.1)
[2024-02-28 10:28] LABS: INR 1.9; Prothrombin Time 19.5 Seconds (9.50-12.1)
[2024-03-06 10:13] LABS: INR 3.4; Prothrombin Time 33.7 Seconds (9.50-12.1)
[2024-03-13 09:10] LABS: INR 2.6
== END 2024-03-24 23:59 | disposition home or self-care (01) ==
LOC: CHSLAB 08:45
PROVIDERS: PCP Internal Medicine; Visit Provider Internal Medicine
DX: Z51.81 Encounter for therapeutic drug level monitoring (principal); Z79.01 Long term (current) use of anticoagulants
CPT/HCPCS: 36415; 85610

== ENCOUNTER 2024-05-07 08:18 | Outpatient (CLI) | payer MEDICARE, SELFPAY ==
--- NOTE | ~2024-05-07 | MM_ITS ---
EXAMINATION: MM screening negro BI w pan HISTORY: Screening mammogram TECHNIQUE: Craniocaudal and mediolateral oblique 3-D tomosynthesis images were obtained and synthetic 2-D images were generated. CAD analysis was submitted and interpreted. COMPARISON: 05/04/2023, 05/02/2022, 04/27/2021, 04/05/2020 BREAST PARENCHYMAL COMPOSITION:Dense: The breasts are extremely dense, which lowers the sensitivity o f mammography. FINDINGS: No suspicious mass, calcification, or architectural distortion are identified in either richelle ast to suggest malignancy. There has been no suspicious interval change. IMPRESSION: No mammographic evidence of malignancy. Recommend routine screening mammography in one year. BI-RADS Category 1: Negative Reviewed, dictated and finalized at location . RE PHOTOGRAPHER
--- OUTSIDE RECORDS SUMMARY | 2024-05-07 08:33 | XMS_ITS | Referral Summary ---
Author Organization [facility] Address [address] [place] [id number] Care Team Providers Care Radiological Health Specialist Name Role Phone Aydee Reese MD Primary Care Provider No, Physician Unavailable Allergies No known active allergies Medications warfarin (COUMADIN) 5 mg tablet Take 6 mg by mouth daily 02/01/2019 Active alendronate (FOSAMAX) 70 mg tablet Take 70 mg by mouth 02/08/2019 Active aspirin 81 mg enteric coated tablet Take 81 mg by mouth daily Active butalbital-aceta minophen-caffein e (ESGIC) 50-325-40 mg per tablet Take 1 tablet by mouth as needed 02/27/2019 Active cetirizine (ZyrTEC) 10 mg tablet Take 10 mg by mouth daily as needed Active cholecalciferol (VITAMIN D-3) 2000 unit capsule Take 50 mcg by mouth daily Once a week 11/20/2011 Active magnesium oxide (MAG-OX) 400 mg (241.3 mg elemental magnesium) tablet Take 400 mg by mouth daily 06/21/2015 Active Active Problems Problem Noted Date Diagnosed Date Mitral valve disease 03/08/2021 GERD (gastroesophageal reflux disease) PFO (patent foramen ovale) 03/01/2021 Overview (03/01/2021): s/p closure Syncope 01/12/2021 Mixed hyperlipidemia 10/25/2019 Postoperative atrial fibrillation ([facility]/HCC) 04/12 Anemia 10/01/2015 Pelvic mass 10/01/2015 H/O mitral valve replacement 09/03/2015 Immunizations Immunization Administration Dates Next Due Hep B, Adolescent or Pediatric 05/22/1991,1990,11/19/1990 Influenza, Quadrivalent, Spl it, Preservative Free, Intramuscular 12/01/2018,11/23/2016 Influenza, Trivalent, IM (MDV) 2015 Influenza, Unspecified 12/04/2017 Pneumococcal Conjugate PCV 13 2015 Tdap 10/16/2011 ZOSTER LIVE 09/28/2016 ZOSTER Recombinant 05/18/2018,03/02/2018, 018 Social History Tobacco Use Types Packs/Day Years Used Date Smoking Tobacco: Never Smokeless Tobacco: Never Tobacco Cessation:Counseling Given: Not Answered Alcohol Use Standard Drinks/Week Comments No 0 (1 standard drink = 0.6 oz pur e alcohol) Comments No Sex and Gender Information Value Date Recorded Sex Assigned at Not on file Legal Sex 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 Gender Identity Not on file Sexual Orientation Not on file Last Filed Vital Signs Vital Sign Reading Time Taken Comments Blood Pressure 129/76 03/08/2022 12:10 PM DAIRY CATTLE FARM MANAGER Pulse 87 03/08/2022 12:10 PM DAIRY CATTLE FARM MANAGER Temperature 36.7 C (98 F) 03/08/2022 12:10 PM DAIRY CATTLE FARM MANAGER Respiratory Rate 16 03/08/2022 12:10 PM DAIRY CATTLE FARM MANAGER Oxygen Saturation 98% 03/08/2022 12:10 PM DAIRY CATTLE FARM MANAGER Inhaled Oxygen Concentration - - Weight 54.4 kg (120 lb) 12/19/2022 6:27 AM CDT Height 167.6 cm (5' 6 ) 12/19/2022 6:27 AM CDT Body Mass Index 19.37 12/19/2022 6:27 AM CDT Plan of Treatment Not on file Procedures Procedure Name Priority Date/Time Associated Diagnosis Comments COLONOSCOPY REPORT 10/22/2015 from Last 3 Months or Most Recently Relevant to Health Maintenance Results * COLONOSCOPY REPORT (10/22/2015) Anatomical Region Laterality Modality Other Narrative 10/22/2015 Ordered by an unspecified provider. us Historical Provider MD UP PROCEDURE ORDERABLES F inal Result from Last 3 Months or Most Recently Relevant to Health Maintenance Insurance MEDICARE [facility] [place] [address] MEDICARE AET SENIOR SUPPLEMENT MEDICARE [employer]ET[employer] SENIOR SUPPLEMENT [address] [facility] HMO/PPO Address: [address] [address] [place] [address] Care Teams Radiological Health Specialist Relationship Specialty Start Date End Date Aydee Reese MD [address] [place] [address] PCP - General 05/24/16 No, Physician 02/18/19
--- OUTSIDE RECORDS SUMMARY | 2024-05-07 08:33 | XMS_ITS | Clinical Summary ---
Author Organization [facility] Address [address] [place] [id number] Care Team Providers Care Inspector Health Care Facilities Name Role Phone Aydee Reese MD Primary [...] 01/12/2021 Mixed hyperlipidemia 10/25/2019 Postoperative atrial fibrillation (CMS/HCC) 04/12 Anemia 10/01/2015 Pelvic mass 10/01/2015 H/O mitral valve replacement 09/03/2015 Immunizations Immunization Administration Dates Next Due Hep B, Adolescent or Pediatric 05/22/1991,1990,11/19/1990 Influenza, Quadrivalent, Spl it, Preservative Free, Intramuscular 12/01/2018,11/23/2016 Influenza, Trivalent, IM (MDV) 2015 Influenza, Unspecified 12/04/2017 Pneumococcal Conjugate PCV 13 2015 Tdap 10/16/2011 ZOSTER LIVE 09/28/2016 ZOSTER Recombinant 05/18/2018,03/02/2018, 018 Surgical History Surgery Date Site/Laterality Comments IMAGE GUIDED PARACENTESIS ABDOMEN 11/11/2015 N/A Social History Tobacco Use Types Packs/Day Years Used Date Smoking Tobacco: Never Smokeless Tobacco: Never Tobacco Cessation:Counseling Given: Not Answered Alcohol Use Standard Drinks/Week Comments No 0 (1 standard drink = 0.6 oz pur e alcohol) Comments No Sex and Gender Information Value Date Recorded Sex Assigned at Not on file Legal Sex Female 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 Gender Identity Not on file Sexual Orientation Not on file Obstetrics History Para Term AB IAB SAB Ectopic Multiple Livin g Live Births 3 3 3 3 Date Outcome GA Total Labor Labor/2nd/3rd Weight Sex Type Anes PTL Goldie A1 A5 Name Clin Term Term Term Last Filed Vital Signs Vital Sign Reading Time Taken Comments Blood Pressure 129/76 03/08/2022 12:10 PM DISABILITY EXAMINER Pulse 87 03/08/2022 12:10 PM DISABILITY EXAMINER Temperature 36.7 C (98 F) 03/08/2022 12:10 PM DISABILITY EXAMINER Respiratory Rate 16 03/08/2022 12:10 PM DISABILITY EXAMINER Oxygen Saturation 98% 03/08/2022 12:10 PM DISABILITY EXAMINER Inhaled Oxygen Concentration - - Weight 54.4 kg (120 lb) 12/19/2022 6:27 AM CDT Height 167.6 cm (5' 6 ) 12/19/2022 6:27 AM CDT Body Mass Index 19.37 12/19/2022 6:27 AM CDT Plan of Treatment Health Maintenance Due Date Last Done Comments Breast Cancer Screening-Mammogram 1955 Depression Screening 1955 Fall Risk Assessment 1955 Hepatitis C Screening 1955 Osteoporosis Screening-Bone Density Scan 1955 Pneumococcal vaccine 65+ (2 of 2 - PPSV23) 01/18/2016 2015 Well Visit 65+ 01/18/2020 DTaP/Tdap/Td Vaccine (2 - Td or Tdap) 10/15/2021 10/16/2011 Colon Cancer Screening-Colonoscopy 10/21/2025 10/22/2015 Hepatitis B Screening Completed 05/22/1991 , 12/17/1990, 11/19/1990 Colon Cancer Screening-CT Colonography Discontinued 10/22/2015 Colon Cancer Screening-DNA Stool Discontinued 10/22/19 16 Colon Cancer Screening-FIT Discontinued 10/22/2015 Colon Cancer Screening-Sigmoidoscopy Discontinued 10/22/2015 Zoster Vaccine Completed 05/18/2018, 02/10, 12/01/2017, Additional history exists Influenza Vaccine Completed 12/09/2023, , 12/04/2017, Additional history exists Procedures Procedure Name Priority Date/Time Associated Diagnosis Comments COLONOSCOPY REPORT 10/22/2015 from Last 3 Months or Most Recently Relevant to Health Maintenance Results * COLONOSCOPY REPORT (10/22/2015) Anatomical Region Laterality Modality Other Narrative 10/22/2015 Ordered by an unspecified provider. us Historical Provider GI PROCEDURE ORDERABLES F inal Result from Last 3 Months or Most Recently Relevant to Health Maintenance Insurance MEDICARE [employer] SENIOR SUPPLEMENT MEDICARE AET[employer] SENIOR SUPPLEMENT MEDICARE [employer] SENIOR [place] [address] [place] [address] [facility] HMO/PPO Address: [address] [address] [place] [address] Care Teams Inspector Health Care Facilities Relationship Specialty Start Date End Date Aydee Reese MD [address] [place] [address] PCP - General 05/24/16 No, Physician 02/18/19
== END 2024-05-07 08:19 | disposition home or self-care (01) ==
PROVIDERS: PCP Internal Medicine; Visit Provider Obstetrics & Gynecology
DX: Z12.31 Encounter for screening mammogram for malignant neoplasm of breast (principal)
CPT/HCPCS: 77063; 77067

== ENCOUNTER 2024-06-16 08:50 | Outpatient (RCR) | payer MEDICARE, SELFPAY ==
[2024-04-14 09:44] LABS: INR 2.8; Prothrombin Time 28.2 Seconds (9.50-12.1)
[2024-05-13 08:43] LABS: INR 3.3; Prothrombin Time 32.2 Seconds (9.50-12.1)
[2024-06-16 09:17] LABS: INR 2.1; Prothrombin Time 21.5 Seconds (9.50-12.1)
== END 2024-07-13 23:59 | disposition home or self-care (01) ==
LOC: CHSLAB 08:50
PROVIDERS: PCP Internal Medicine; Visit Provider Internal Medicine
DX: Z79.01 Long term (current) use of anticoagulants (principal)
CPT/HCPCS: 36415; 85610

== ENCOUNTER 2024-09-08 10:33 | Outpatient (CLI) | payer MEDICARE, SELFPAY ==
--- NOTE | ~2024-09-08 | CT_ITS ---
CT abdomen pelvis w con Ordering provider: Aydee Reese MD History: 69 years Female with . Blood in stool, Abdomen cramping X Sunday . Comparison: None. Technique: CT abdomen and pelvis with IV and without oral contrast. Automated exposure control and it erative reconstruction technique were employed. The dose-length product was 211.44 mGy-cm. 100 mL Omn ipaque 350 was given IV. Findings: VISUALIZED LOWER CHEST: Normal. UPPER ABDOMINAL ORGANS: Liver: Small hypodensity measuring 6 mm is seen in the right lobe segment 8 most likely tiny cysts. F ollow-up advised. Another hypodensity seen in segment #7 measuring 6 x 12 mm. Ultrasound evaluation a dvised. Gallbladder: Normal. Spleen: Normal. Stomach/duodenum: Normal. Pancreas: Atrophic body and tail. Adrenals: Normal. Kidneys: Large left kidney cyst measuring 6.6 x 6.9 cm. PELVIC ORGANS: The bladder is slightly underfilled with thickened wall. Evaluation for cystitis advis ed. BOWEL AND MESENTERY: Colon: Fat stranding around the rectum with thickened wall is seen which may indicate proctitis. Smal l hypodensity seen in the right side of the wall of the rectum which measures 1 x 1.1 cm which may re present an abscess clinical evaluation advised. No evidence of diverticulitis. Appendix is not demons trated. Small Bowel: Normal. No obstruction. Peritoneum/mesentery: No free air or free fluid. No mesenteric lymphadenopathy. RETROPERITONEUM: Mild atheromatous disease of the abdominal aorta. No retroperitoneal lymphadenopat hy. MUSCULOSKELETAL: Superficial soft tissues: The superficial soft tissues are normal. Bones: Age appropriate degenerative changes of the spine. Bilateral hip osteoarthritic changes. Bilat eral sacroiliitis. IMPRESSION: 1. Fat stranding around the rectum suggestive of proctitis. Small hypodensity in the right upper rec jacquelin wall which may indicate an abscess. Fluid-filled diverticulum is not excluded Clinical correlatio n and follow-up advised. 2. No evidence of appendicitis, diverticulitis or intestinal obstruction. 3. Small hypodensities in the liver. Ultrasound evaluation advised. 4. Slightly thickened wall of the urinary bladder which may indicate cystitis. Clinical evaluation a dvised. 5. Large left renal cyst. Reviewed, dictated and finalized at location A. IMPRESSION: 1. Fat stranding around the rectum suggestive of proctitis. Small hypodensity in the right upper rectal wall which may indicate an abscess. Fluid-filled dive rticulum is not excluded Clinical correlation and follow-up advised. 2. No evidence of appendicitis, diverticulitis or intestinal obstruction. 3. Small hypodensities in the liver. Ultrasound evaluation advised. 4. Slightly thickened wall of the urinary bladder which may indicate cystitis. Clinical evaluation advised. 5. Large left renal cyst.
[2024-09-08 10:54] LABS: Hematocrit 42.6 % (35.0-42.0); Hemoglobin 13.6 g/dL (11.7-13.8); Immature Reticulocyte Fraction 4.4 % (2.0-16.52); Mean Corpuscular HGB Conc 31.9 g/dL (32-36); Mean Corpuscular Hemoglobin 30.6 pg (27.0-31.0); Mean Corpuscular Volume 95.9 fL (78.0-102.0); Mean Platelet Volume 10.3 fl (9.2-11.8); Platelet Count Result 226 K/mm3 (150-420); Red Blood Count 4.44 M/mm3 (4.20-5.40); Red Cell Distribution Width 12.7 % (11.6-14.4); Reticulocyte Hemoglobin Conten 32.8 pg (28.0-35.0); Reticulocyte Percent 0.78 % (0.50-1.50); Reticulocytes Absolute 0.03 M/mm3 (0.02-0.10); White Blood Count 5.1 K/mm3 (4.8-10.8)
[2024-09-08 11:04] LABS: Lactic Acid Reflex 1.3 mmol/L (0.4-2.0)
[2024-09-08 11:08] LABS: Alanine Aminotransferase 22 U/L (6-35); Albumin Level 4.2 g/dL (3.5-5.1); Alkaline Phosphatase 64 U/L (38-126); Anion Gap 3 mmol/L (4-12); Aspartate Amino Transferase 35 U/L (14-36); Blood Urea Nitrogen 11 mg/dL (7-17); CRP 3.5 mg/dL (<1.0); Calcium 8.6 mg/dL (8.4-10.2); Carbon Dioxide 31 mmol/L (22-30); Chloride 104 mmol/L (98-107); Estimated Glomerular Filt Rate > 60; Glucose 104 mg/dL (65-110); Iron 50 ug/dL (37-170); Osmolality Calculated 285 mOsm/kg (285-295); Potassium 3.6 mmol/L (3.4-5.0); Sodium 138 mmol/L (137-145); Total Protein 7.1 g/dL (6.3-8.2)
[2024-09-08 11:13] LABS: Prothrombin Time 57.7 Seconds (9.50-12.1)
[2024-09-08 11:25] LABS: INR 6.2
[2024-09-08 11:57] LABS: Erythrocyte Sedimentation Rate 28 mm/hr (0-20)
[2024-09-11 11:34] LABS: Myeloperoxidase Ab <1.0 AI (<1.0); Proteinase-3 Ab <1.0 AI (<1.0)
[2024-09-12 00:44] LABS: S cerevisiae Ab (IgG) 7.1 U (<=20.0)
[2024-09-12 15:08] LABS: S cerevisiae Ab (IgA) 4.6 U (<=20.0)
[2024-09-15 20:38] LABS: ANCA Screen Negative (Negative)
== END 2024-09-08 10:34 | disposition home or self-care (01) ==
LOC: CHSLAB 10:35
PROVIDERS: PCP Internal Medicine; Visit Provider Internal Medicine
DX: K92.2 Gastrointestinal hemorrhage, unspecified (principal); R19.7 Diarrhea, unspecified; R93.2 Abnormal findings on diagnostic imaging of liver and biliary tract; N28.1 Cyst of kidney, acquired
CPT/HCPCS: 36415; 74177; 80053; 82728; 83540; 83605; 85027; 85046; 85610; 85652; 86036; 86140; 86671; Q9967

== ENCOUNTER 2024-09-11 08:56 | Outpatient (CLI) | payer MEDICARE, SELFPAY ==
--- OUTSIDE RECORDS SUMMARY | 2024-09-11 09:00 | XMS_ITS | Referral Summary ---
Author Organization [facility] Address [address] [place] [phone] Care Team Providers Care Director Religious Education Name Role Phone Aydee Reese MD Primary Care Provider No, Physician Unavailable Encounters Date Type Department Care Team Description 09/10/2024 Telephone [facility] Gastroenterology at [address] [place] [address] Andree Rucker from Last 3 Months Allergies No known active allergies Medications warfarin [...] Active Problems Problem Noted Date Diagnosed Date Melena 09/10/2024 Rectal abscess 09/10/2024 Ulcerative proctitis with complication 07/02/202 5 History of colonic polyps 09/10/2024 Mitral valve disease 03/08/2021 GERD (gastroesophageal reflux disease) 1 PFO (patent foramen ovale) 03/01/2021 Overview (03/01/2021): s/p closure Syncope 01/12/2021 Mixed hyperlipidemia 10/25/2019 Postoperative atrial fibrillation 04/30/2019 Anemia 10/01/2015 Pelvic mass 10/01/2015 H/O mitral [...] on file Legal Sex Female 1:25 PM COTTON PICKER Gender Identity Not on file Sexual Orientation Not on file Last Filed Vital Signs Vital Sign Reading Time Taken Comments Blood Pressure 129/76 03/08/2022 12:10 PM COTTON PICKER Pulse 87 03/08/2022 12:10 PM COTTON PICKER Temperature 36.7 C (98 F) 03/08/2022 12:10 PM COTTON PICKER Respiratory Rate 16 03/08/2022 12:10 PM COTTON PICKER Oxygen Saturation 98% 03/08/2022 12:10 PM COTTON PICKER Inhaled Oxygen Concentration - - Weight 54.4 kg (120 lb) 12/19/2022 6:27 AM CDT Height 167.6 cm (5' 6) 12/19/2022 6:27 AM CDT Body Mass Index 19.37 12/19/2022 6:27 AM CDT Plan of Treatment Upcoming Encounters Date Type Department Care Team (Late st Contact Info) Description 09/19/2024 12:00 PM CDT Hospital Encounter [facility] [address] [place] [address] Lakshmi Kern MD [address] [facility] [address] [place] [address] 09/19/2024 12:00 PM CDT - 09/19/2024 12:30 PM CDT Surgery [address] [address] Lakshmi Kern MD [address] [facility] [address] [place] [address] COLONOSCOPY Scheduled Procedures Name Priority Associated Diagnoses Date/Ti me COLONOSCOPY Melena Rectal abscess Ulcerative proctitis with complication (HCC) History of colonic polyps 09/19/2024 12:00 PM CDT Procedures Procedure Name Priority Date/Time Associated Diagnosis [...] AETNA SENIOR SUPPLEMENT MEDICARE AETNA SENIOR SUPPLEMENT [facility] Care Teams Director Religious Education Relationship Specialty Start Date End Date Aydee Reese MD [address] [place] [address] PCP - General 05/24/16 No, Physician 02/18/19
--- OUTSIDE RECORDS SUMMARY | 2024-09-11 09:00 | XMS_ITS | Encounter Summary ---
Author Organization [facility] Address [address] [place] [address] Care Team Providers Care Sawmill Or Timber Yard Worker Name Role Phone Aydee Reese MD Primary Care Provider No, Physician Unavailable Encounter Details Date Type Department Care Team (Late st Contact Info) Description 09/10/2024 Telephone [facility] Gastroenterology at [address] [place] [address] Andree Rucker Social History Tobacco Use Types Packs/Day Years Used Date Smoking Tobacco: Never Smokeless Tobacco: Never Alcohol Use Standard Drinks/Week Comments No 0 (1 standard drink = 0.6 oz pur e alcohol) Comments No Sex and Gender Information Value Date Recorded Sex Assigned at Not on file Legal Sex Female 1:[address] INSPECTOR Gender Identity Not on file Sexual Orientation Not on file documented as of this encounter Miscellaneous Notes * Telephone Encounter - Adeola Ojeda - 09/10/2024 12:45 PM CDT Per private message from Dr. Kern, patient's PCP called him and wants patient to be seen tatyana for the colonoscopy. Dr. Kern has agreed to work patient in on 09/19/24 at 12:00 pm. Called patient and she stated her has a procedure the day before, but she is going to see if someone can stay with him on 09/19/24 so she can do the colonoscopy that day. Prep instructions were updated and emailed to [email or web address]. Case was updated on the snap board. * Telephone Encounter - Andree Rucker - 09/10/2024 9:16 AM CDT Mrs. Barbosa scheduled her colonoscopy for 11/13/2024 @ 130 PM Last colonoscopy: 2016 Family history colon cancer (if yes, relationship to pt): no Personal history colon polyps or colon cancer: polyps Pt on blood thinner (if yes, list medication and reason for taking): Warfarin Has pt had recent stent placement within the last year: no Pt have pacemaker/defibrillator: no Pt diabetic (if yes, insulin or oral meds): no Pt takes injections for weight loss: no Pt have kidney disease or on dialysis: no Pt on iron: no Hx of Constipation: no Mechanical Heart valve: yes Instructed pt to call with any medical changes and/or medications/insurance. documented in this encounter Plan of Treatment Upcoming Encounters Date Type Department Care Team (Late st Contact Info) Description 09/19/2024 12:00 PM CDT Hospital Encounter [address] [address] Lakshmi Kern MD [address] [place] [address] [address] [place] [address] 09/19/2024 12:00 PM CDT - 09/19/2024 12:30 PM CDT Surgery [address] [address] Lakshmi Kern MD [address] [place] [address] [address] [place] [id number] COLONOSCOPY Scheduled Procedures Name Priority Associated Diagnoses Date/Ti me COLONOSCOPY Melena Rectal abscess Ulcerative proctitis with complication (HCC) History of colonic polyps 09/19/2024 12:00 PM CDT documented as of this encounter Visit Diagnoses Diagnosis Melena- Primary Blood in stool Rectal abscess Abscess of anal and rectal regions Ulcerative proctitis with complication (HCC) History of colonic polyps Personal history of colonic polyps Melena Blood in stool Rectal abscess Abscess of anal and rectal regions Ulcerative proctitis with complication (HCC) History of colonic polyps Personal history of colonic polyps Melena Blood in stool Rectal abscess Abscess of anal and rectal regions Ulcerative proctitis with complication (HCC) History of colonic polyps Personal history of colonic polyps documented in this encounter Orders Case Request Count Last Ordered Date First Orde red Date CASE REQUEST GI 1 09/10/2024 documented in this encounter Care Teams Sawmill Or Timber Yard Worker Relationship Specialty Start Date End Date Aydee Reese MD [address] [place] [address] PCP - General 05/24/16 No, Physician 02/18/19 documented as of this encounter
--- OUTSIDE RECORDS SUMMARY | 2024-09-11 09:01 | XMS_ITS | Encounter Summary ---
Author Organization [facility] Address [address] [place] [address] Care Team Providers Care Fire Prevention Research Engineer Name Role Phone Aydee Reese MD Primary Care Provider Te Patino MD Unavailable [phone] Mirta Choi APRN, NP-C Unavailable Miguelina Hanson MD Unavailable [phone] Meghann Chicas ANP-BC Unavailable [phone] Encounter Details Date Type Department Care Team (Late st Contact Info) Description 10/23/2017 Abstract [facility] [address] [place] [phone] Te Patino MD [address] [place] [address] Social History Tobacco Use Types Packs/Day Years Used Date Smoking Tobacco: Never Smokeless Tobacco: Never Alcohol Use Standard Drinks/Week Comments No 0 (1 standard drink = 0.6 oz pur e alcohol) Comments Unknown Sex and Gender Information Value Date Recorded Sex Assigned at Not on file Legal Sex Female 1:42 AM CDT Gender Identity Not on file Sexual Orientation Not on file 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 Not on file Not on file Not on file Not on file Not on file Not on file documented as of this encounter Plan of Treatment Not on file documented as of this encounter Visit Diagnoses Not on filedocumented in this encounter Additional Health Concerns Infection Onset Date Last Indicated Resolved Time COVID-19 Rule Out 12/15/2019 12/15/2019 12/16/2019 1:39 PM CDT documented as of this encounter Care Teams Fire Prevention Research Engineer Relationship Specialty Start Date End Date Aydee Reese MD [address] [place] [phone] PCP - General INTERNAL MEDICINE 09/02/15 Te Patino MD [address] [place] [phone] [place] Psychological Aide CARDIOVASCULAR DISEASE 09/02/15 07/04/23 Mirta Choi APRN, TAR PROCESSING TECHNICIAN-C [address] [phone] NURSE PRACTITIONER 11/03/20 07/04/23 Miguelina Hanson MD [address] [phone] INTERVENTIONAL CARDIOLOGY 07/05/23 Meghann Chicas, ANP- [address] [place] [address] Nurse Practitioner NURSE PRACTITIONER ADULT HEALTH 07/05/23 documented as of this encounter
--- OUTSIDE RECORDS SUMMARY | 2024-09-11 09:01 | XMS_ITS | Clinical Summary ---
Author Organization [facility] Address [facility] [place] [address] Care Team Providers Care Dryland Farmer Name Role Phone Aydee Reese MD Primary Care Provider Miguelina Hanson MD Unavailable [phone] Meghann Chicas [facility]- Unavailable [phone] Allergies No known active allergies Medications magnesium oxide (MAG-OX) 400 (241.3 Mg) MG tablet Take 1 tablet (400 mg total) by mouth daily. 06/21/2015 Active Vitamin D, Cholecalciferol , 50 MCG (2000 UT) Cap Take 50 mcg by mouth once a week. 11/20/2011 Active aspirin EC (ECOTRIN) 81 MG tablet Take 1 tablet (81 mg total) by mouth daily. Active cetirizine 10 MG tablet Take 1 tablet (10 mg total) by mouth daily as needed for Allergies. Active alendronate 70 MG tablet Take 1 tablet (70 mg total) by mouth every 7 days. 05/15/2019 Active butalbital-acet aminophen-caffe ine 50-325-40 MG tablet Take 1 tablet by mouth as needed. 02/27/2019 Active warfarin 5 MG tablet Take 6 mg by mouth daily. As directed 12/13/2019 Active psyllium 51.7 % packet Take 1 packet by mouth as needed. Active Active Problems Problem Noted Date Diagnosed Date S/P patent foramen ovale closure 05/08/2022 S/P left atrial appendage ligation 05/08/2022 Syncope, unspecified syncope type 01/12/2021 S/P ablation of atrial fibrillation 01/12/2021 Mixed hyperlipidemia 10/25/2019 Postoperative atrial fibrillation ([facility]) 04/30/2019 H/O mitral valve replacement 09/03/2015 GERD (gastroesophageal reflux disease) Mitral valve disease PFO (patent foramen ovale) ([facility]) Overview (10/26/2016): s/p closure Family History Medical History Relation Comments Aneurysm Father Relation Status Comments Brother 1 Alive Brother 2 Alive Father Other Mother Sister 1 Sister 2 Alive Mitral Valve Pro lapse Sister 3 Alive Sister 4 Alive Sister 5 Alive Social History Tobacco Use Types Packs/Day Years [...] file Not on file Not on file Last Filed Vital Signs Vital Sign Reading Time Taken Comments Blood Pressure 124/72 01/21/2024 11:46 AM PRODUCTION GENERALIST Pulse 86 01/21/2024 11:46 AM PRODUCTION GENERALIST Temperature 36.5 C (97.7 F) 12/19/2019 5:09 AM CDT Respiratory Rate 20 12/21/2022 11:00 AM CDT Oxygen Saturation 100% 01/21/2024 11:46 AM PRODUCTION GENERALIST Inhaled Oxygen Concentration - - Weight 54 kg (119 lb) 01/21/2024 11:46 AM PRODUCTION GENERALIST Height 167.6 cm (5' 6) 01/21/2024 11:46 AM PRODUCTION GENERALIST Body Mass Index 19.21 01/21/2024 11:46 AM PRODUCTION GENERALIST Plan of Treatment Health Maintenance Due Date Last Done Comments Colorectal Cancer Screening Colonoscopy (10 Years) 1955 Hepatitis C 1973 Mammogram Screening 1995 RSV Immunization or 60+ Years (1 - Risk 60-74 years 1-dose series) 2015 Pneumococcal Vaccine: 50+ Years (2 of 2 - PPSV23) 03/14/2015 2015 Annual Medicare Wellness Visit 01/18/2020 Dexa Scan (General) 01/18/2020 DTaP, Tdap and Td Vaccines (2 - Td or Tdap) 10/15/2021 10/16/2011 COVID-19 Vaccine (2023- season) 2023 Zoster Vaccines Completed 05/18/2018, 02/10, 12/01/2017, Additional history exists Meningococcal B Vaccine Aged Out No l onger eligible based on patient's age to complete this topic Meningococcal Vaccine Aged Out No brandin melly eligible based on patient's age to complete this topic RSV Immunizations Under 20 Months Aged Out No longer eligible based on patient's age to complete this topic Insurance MEDICARE AETNA MEDICARE AETNA Advance Directives * Full Code (Latest Code Status on File) Date Activated Date Inactivated Comments 12/18/2019 2:41 PM 12/19/2019 8:25 PM Care Teams Dryland Farmer Relationship Specialty Start Date End Date Aydee Reese MD [address] [place] [phone] PCP - General INTERNAL MEDICINE 09/02/15 Miguelina Hanson MD [address] [place] [phone] INTERVENTIONAL CARDIOLOGY 07/05/23 Meghann Chicas, ANP- [address] [place] [address] Nurse Practitioner NURSE PRACTITIONER ADULT HEALTH 07/05/23
--- OUTSIDE RECORDS SUMMARY | 2024-09-11 09:01 | XMS_ITS | Encounter Summary ---
Author Organization [facility] Address [facility] [place] [address] Care Team Providers Care Treater Name Role Phone Aydee Reese MD Primary Care Provider [phone] Te Patino MD Unavailable [phone] Mirta Choi APRN STUDENT DRIVING INSTRUCTOR-C Unavailable Miguelina Hanson MD Unavailable [phone] Meghann Chicas ANP-BC Unavailable [phone] Encounter Details Date Type Department Care Team (Late st Contact Info) Description 12/16/2019 Hospital Orders Only [facility] [address] [place] [address] Christi Vasquez Anesthesia Record Procedure Summary Procedure Name Responsible Anesthesiologist Anesthesia Start Time Anesthesia Stop Time XA A-FIB ABLATION Vinayak Bowser MD 12/18/19 1159 10/29 1435 Events Date Time Event Comment 12/18/2019 1051 1051 AN Anesthesia Prepped 1159 An Start Patient ID and consent checked and patient reassessed. 1159 An Start Data 1203 Preoxygenation 1204 An Induction 1210 An Intubation 1230 Anesthesia Ready 1321 Quick Note ACT = 483; reas sess in 30 mins PSR 1359 Quick Note ACT = 373 1422 An Extubation 1429 an stop data 1435 Post Anesthetic Care Handoff I completed my handoff to the receiving nurse during which we: 1. Identified the patient 2. Identified the responsible provider 3. Reviewed the pertinent medical history 4. Discussed the surgical course 5. Reviewed intra-op anesthesia management and issues during anesthesia 6. Set expectations for post-procedure period 7. Allowed opportunity for questions and acknowledgement of understanding. 1435 An Stop Meds * Agents No agents on file. * Blood No blood administrations on file. Lines, Drains, and Airways Type Details Placement Removal Peripheral IV Placement Date: 12/18/19; Placement Time: 1044; Placed Outside of This Facility?: No; Size: 18 G; Orientation: Right; Location: Antecubital; Site Prep: Chlorhexidine; Local Anesthetic: None; Insertion attempts: 1; Ultrasound-guided Placement?: No; Patient Tolerance: Tolerated well; Removal Date: 12/19/19; Removal Time: 1154; Removal Reason: Patient Discharged 12/18/19 1044 by Mayra Rai RN 12/19/19 1154 by Delmy Beaver RN ETT Placement Date: 12/18/19; Placement Time: 1211; Placed Outside of This Facility?:No; Mask Ventilate: Easy; Size (mm) : 7; Endotracheal: Oral, Stylet used; Blade Type: MAC 3; Placement Method: Direct Laryngoscopy (blade type in comment); View Grade: 1; Viewable Anatomy: Epiglottis, Arytenoid, Vocal cords; Insertion Attempts: 1; Placement Verified By: Capnography, Auscultation, Chest Rise; Placed By: RODNEY; Removal Date: 12/18/19; Removal Time: 1422 12/18/19 1211 by Khanh Mittal CRNA 12/18/19 1422 by Khanh Mittal CRNA Peripheral IV Placement Date: 12/18/19; Placement Time: 1215; Placed Outside of This Facility?: No; Size: 20 G; Orientation: Left; Location: Wrist; Site Prep: Chlorhexidine; Local Anesthetic: None; Inserted By: ISAAK; Insertion attempts: 2; Ultrasound-guided Placement?: No; Patient Tolerance: Tolerated well; Removal Date: 12/19/19; Removal Time: 1154; Removal Reason: Patient Discharged 12/18/19 1215 by Khanh Mittal CRNA 12/19/19 1154 by Delmy Beaver RN Arterial Line Placement Date: 12/18/19; Placement Time: 1220 (created via procedure documentation); Placed Outside of This Facility?: No; Size: 20; Orientation: Right; Location: Radial; Site Prep: Chlorhexidine; Local Anesthetic: None; Insertion Attempts: 2; Patient Tolerance: Tolerated well; Removal Date: 12/18/19; Removal Time: 1504 12/18/19 1220 by Khanh Mittal CRNA 12/18/19 1504 by Benjamin Pickering RN Supraglottic Airway Placement Date: 12/18/19; Placement Time: 1415; Airway Device: Oral pharyngeal airway (90mm); Placed By: RODNEY; Removal Date: 12/18/19; Removal Time: 1433 12/18/19 1415 by Khanh Mittal CRNA 12/18/19 1433 by Khanh Mittal CRNA Surgical/Incision 12/18/19; 1443; Clos ed Incision; Groin; Right; Bandaid; 12/19/19; 1155 12/18/19 1443 by Benjamin Pickering RN 12/19/19 1155 by Delmy Beaver RN documented in this encounter Social History Tobacco Use Types Packs/Day Years [...] file Not on file Not on file COVID-19 Exposure Response Date Recorded In the last month, have you been in contact with someone who was confirmed or suspected to have Coronavirus / COVID-19? No / Unsure 12/18/2019 10:34 AM CDT documented as of this encounter Functional Status documented as of this encounter Mental Status * Question Answer Entry Date Author Status Because of a physical, mental, or emotional condition, do you have serious difficulty concentrating, remembering, or making decisions? No 12/18/2019 5:46 PM CDT Shelly Leal R N Active documented in this encounter Plan of Treatment Not on file documented as of this encounter Visit Diagnoses Not on filedocumented in this encounter Additional Health Concerns Infection Onset Date Last Indicated Resolved Time COVID-19 Rule Out 12/15/2019 12/15/2019 12/16/2019 1:39 PM CDT documented as of this encounter Care Teams Treater Relationship Specialty Start Date End Date Aydee Reese MD [address] [place] [address] PCP - General INTERNAL MEDICINE 09/02/15 Te Patino MD [address] [place] [phone] Raymond Bi Specialist CARDIOVASCULAR DISEASE 09/02/15 07/04/23 Mirta Choi APRN, STUDENT DRIVING INSTRUCTOR-C [address] [phone] NURSE PRACTITIONER 11/03/20 07/04/23 Miguelina Hanson MD [address] [phone] INTERVENTIONAL CARDIOLOGY 07/05/23 Meghann Chicas, ANP- [address] [place] [address] Nurse Practitioner NURSE PRACTITIONER ADULT HEALTH 07/05/23 documented as of this encounter
--- OUTSIDE RECORDS SUMMARY | 2024-09-11 09:01 | XMS_ITS | Clinical Summary ---
Author Organization [facility] Address [address] [place] [phone] Care Team Providers Care Production Support Specialist Name Role Phone Aydee Reese MD [...] Rectal abscess 09/10/2024 Ulcerative proctitis with complication History of colonic polyps 09/10/2024 Mitral valve disease 03/08/2021 GERD (gastroesophageal reflux disease) PFO (patent foramen ovale) 03/01/2021 Overview (03/01/2021): s/p closure Syncope 01/12/2021 Mixed hyperlipidemia 10/25/2019 Postoperative atrial fibrillation 04/30/2019 Anemia 10/01/2015 Pelvic mass 10/01/2015 H/O mitral valve replacement 09/03/2015 Encounters Date Type Department Care Team Description 09/10/2024 Telephone [facility] Gastroenterology at [address] [place] [address] Andree Rucker from Last 3 Months Immunizations Immunization Administration Dates Next Due Hep [...] on file Legal Sex Female 1:25 PM WIRE TWISTER Gender Identity Not on file Sexual Orientation Not on file Obstetrics History Para Term AB IAB SAB Ectopic Multiple Livin g Live Births 3 3 3 3 Date Outcome GA Total Labor Labor/2nd/3rd Weight Sex Type Anes PTL Goldie A1 A5 Name Clin Term Term Term Last Filed Vital Signs Vital Sign Reading Time Taken Comments Blood Pressure 129/76 03/08/2022 12:10 PM WIRE TWISTER Pulse 87 03/08/2022 12:10 PM WIRE TWISTER Temperature 36.7 C (98 F) 03/08/2022 12:10 PM WIRE TWISTER Respiratory Rate 16 03/08/2022 12:10 PM WIRE TWISTER Oxygen Saturation 98% 03/08/2022 12:10 PM WIRE TWISTER Inhaled Oxygen Concentration - - Weight 54.4 kg (120 lb) 12/19/2022 6:27 AM CDT Height 167.6 cm (5' 6) 12/19/2022 6:27 AM CDT Body Mass Index 19.37 12/19/2022 6:27 AM CDT Plan of Treatment Upcoming Encounters Date Type Department Care Team (Late st Contact Info) Description 09/19/2024 12:00 PM CDT Hospital Encounter [address] [address] Lakshmi Kern MD 4 [facility] [address] [place] [address] 09/19/2024 12:00 PM CDT - 09/19/2024 12:30 PM CDT Surgery [address] [address] Lakshmi Kern MD [address] [facility] [address] [place] [address] COLONOSCOPY Scheduled Procedures Name Priority Associated Diagnoses Date/Ti me COLONOSCOPY Melena Rectal abscess Ulcerative proctitis with complication (HCC) History of colonic polyps 09/19/2024 12:00 PM CDT Health Maintenance Due Date Last Done Comments Breast Cancer Screening-Mammogram 1955 Depression Screening 1955 Fall Risk Assessment 1955 Hepatitis C Screening 1955 Osteoporosis Screening-Bone Density Scan 1955 Pneumococcal vaccine 65+ (2 of 2 - PPSV23) 01/18/2016 2015 Well Visit 65+ 01/18/2020 DTaP/Tdap/Td Vaccine (2 - Td or Tdap) 10/15/2021 10/16/2011 Influenza Vaccine (#1) 2024 4, 12/01/2018, 12/04/2017, Additional history exists Colon Cancer Screening-Colonoscopy 10/21/2025 10/22/2015 Hepatitis B Screening Completed 05/22/1991 , 12/17/1990, 11/19/1990 Colon Cancer Screening-CT Colonography Discontinued 10/22/2015 Colon Cancer Screening-DNA Stool Discontinued 10/22/19 16 Colon Cancer Screening-FIT Discontinued 10/22/2015 Colon Cancer Screening-Sigmoidoscopy Discontinued 10/22/2015 Zoster Vaccine Completed 05/18/2018, 02/10, 12/01/2017, Additional history exists Procedures Procedure Name Priority [...] AETNA SENIOR SUPPLEMENT MEDICARE AETNA SENIOR SUPPLEMENT Member Subscriber Plan / Payer (Ef fective 2020-) Name:Meghann Barbosa Relation to Subscriber:Self Name:Chelsey Meghann L Payer ID:[id number] Group ID:Not on file Type:COMMERCIAL Address: [address] [employer] [facility]/PPO Address: [address] [address] Care Teams Production Support Specialist Relationship Specialty Start Date End Date Aydee Reese MD [address] [place], [place] [phone] PCP - General 05/24/16 No, Physician 02/18/19
[2024-09-11 09:18] LABS: Hematocrit 39.7 % (35.0-42.0); Hemoglobin 12.7 g/dL (11.7-13.8); Mean Corpuscular HGB Conc 32.0 g/dL (32-36); Mean Corpuscular Hemoglobin 30.3 pg (27.0-31.0); Mean Corpuscular Volume 94.7 fL (78.0-102.0); Platelet Count Result 265 K/mm3 (150-420); Red Blood Count 4.19 M/mm3 (4.20-5.40); White Blood Count 3.1 K/mm3 (4.8-10.8)
[2024-09-11 09:34] LABS: INR 1.7; Partial Thromboplastin Time 41.0 Sec (23.9-30.70); Prothrombin Time 18.3 Seconds (9.50-12.1)
[2024-09-11 09:47] LABS: Band Neutrophils Percent 0 % (0-6); Eosinophils Absolute Manual 0.06 K/mm3 (0.02-0.50); Eosinophils Percent Manual 2 % (1-6); Lymphocytes Absolute Manual 0.93 K/mm3 (1.1-4.5); Lymphocytes Percent Manual 30 % (18-44); Monocytes Absolute Manual 0.12 K/mm3 (0.1-0.90); Monocytes Percent Manual 4 % (3-9); Neutrophils Absolute Manual 1.98 K/mm3 (1.3-6.7); Neutrophils Percent Manual 64 % (46-73); Schistocytes None Seen; Total Cells Counted 100
[2024-09-11 09:48] LABS: Anisocytosis 2+
[2024-09-11 09:53] LABS: Alanine Aminotransferase 23 U/L (6-35); Albumin Level 3.9 g/dL (3.5-5.1); Alkaline Phosphatase 58 U/L (38-126); Anion Gap 5 mmol/L (4-12); Aspartate Amino Transferase 49 U/L (14-36); Bilirubin,Total 0.7 mg/dL (0.2-1.3); Blood Urea Nitrogen 20 mg/dL (7-17); Calcium 8.7 mg/dL (8.4-10.2); Carbon Dioxide 28 mmol/L (22-30); Chloride 105 mmol/L (98-107); Estimated Glomerular Filt Rate > 60; Glucose 88 mg/dL (65-110); Osmolality Calculated 287 mOsm/kg (285-295); Potassium 3.8 mmol/L (3.4-5.0); Sodium 138 mmol/L (137-145); Total Protein 6.0 g/dL (6.3-8.2)
== END 2024-09-11 08:57 | disposition home or self-care (01) ==
LOC: CHSLAB 08:58
PROVIDERS: PCP Internal Medicine; Visit Provider Nurse Practitioner Family
DX: K92.1 Melena (principal); R19.7 Diarrhea, unspecified; K62.89 Other specified diseases of anus and rectum
CPT/HCPCS: 36415; 80053; 85025; 85610; 85730

== ENCOUNTER 2024-09-17 08:13 | Outpatient (CLI) | payer MEDICARE, SELFPAY ==
--- NOTE | ~2024-09-17 | US_ITS ---
Abdominal Sonogram: Real-time sonographic imaging of the abdomen was performed. Clinical History: Liver and kidney cysts Findings: The liver appears normal with no evidence of mass lesion or bile duct dilatation. Main por jacquelin vein demonstrates normal direction of flow. The spleen is normal in size without evidence of foca l lesion. The gallbladder is well distended, and appears normal with no evidence of gallstone or wal l thickening. The common bile duct measures 3 mm. The visualized pancreas, aorta, and IVC are unrema rkable, aside from atherosclerotic change of the aorta. The right kidney measures 10.4 cm in length and the left kidney measures 12.0 cm. There is no hydronephrosis or renal calculus. Large left renal cyst measures 7.4 cm in diameter. Impression: 7.4 cm left renal cyst. Reviewed, dictated and finalized at location . Impression: 7.4 cm left renal cyst.
--- OUTSIDE RECORDS SUMMARY | 2024-09-17 08:17 | XMS_ITS | Clinical Summary ---
Author Organization [facility] Address [facility] [place] [address] Care Team Providers Care Laundry Attendant Name Role Phone Aydee Reese MD Primary Care Provider [phone] Miguelina Hanson MD Unavailable [phone] Meghann Chicas [facility]- Unavailable [phone] Allergies No known active allergies Medications magnesium [...] Mixed hyperlipidemia 10/25/2019 Postoperative atrial fibrillation ([facility]) 04/30/2019 H/O mitral valve replacement 09/03/2015 GERD (gastroesophageal reflux disease) Mitral valve disease PFO (patent foramen ovale) ([facility]) Overview (10/26/2016): s/p closure Family History Medical [...] Comments Blood Pressure 124/72 01/21/2024 11:46 AM MANAGER MORTGAGE Pulse 86 01/21/2024 11:46 AM MANAGER MORTGAGE Temperature 36.5 C (97.7 F) 12/19/2019 5:09 AM CDT Respiratory Rate 20 12/21/2022 11:00 AM CDT Oxygen Saturation 100% 01/21/2024 11:46 AM MANAGER MORTGAGE Inhaled Oxygen Concentration - - Weight 54 kg (119 lb) 01/21/2024 11:46 AM MANAGER MORTGAGE Height 167.6 cm (5' 6) 01/21/2024 11:46 AM MANAGER MORTGAGE Body Mass Index 19.21 01/21/2024 11:46 AM MANAGER MORTGAGE Plan of Treatment Health Maintenance Due Date [...] 2:41 PM 12/19/2019 8:25 PM Care Teams Laundry Attendant Relationship Specialty Start Date End Date Aydee Reese MD [address] [place] [phone] PCP - General INTERNAL MEDICINE 09/02/15 Miguelina Hanson MD [address] [place] [phone] INTERVENTIONAL CARDIOLOGY 07/05/23 Meghann Chicas, ANP- [address] [place] [address] Nurse Practitioner NURSE PRACTITIONER ADULT HEALTH 07/05/23
--- OUTSIDE RECORDS SUMMARY | 2024-09-17 08:17 | XMS_ITS | Encounter Summary ---
Author Organization [facility] Address [address] [place] [address] Care Team Providers Care Dance Hall Host/Hostess Name Role Phone Aydee Reese MD Primary Care Provider [phone] Te Patino MD Unavailable Mirta Choi APRN, NP-C Unavailable Miguelina Hanson MD Unavailable [phone] Meghann Chicas ANP-BC Unavailable [phone] Encounter Details Date Type Department Care Team (Late st Contact Info) Description 10/23/2017 Abstract [facility] [address] [place] [phone] Te Patino MD [address] [place] [address] Social History Tobacco Use Types [...] documented as of this encounter Care Teams Dance Hall Host/Hostess Relationship Specialty Start Date End Date Aydee Reese MD [address] [place] [phone] PCP - General INTERNAL MEDICINE 09/02/15 Te Patino MD [address] [place] [phone] [employer] Sales Representative CARDIOVASCULAR DISEASE 09/02/15 07/04/23 Mirta Choi APRN, FIRST AID INSTRUCTOR-C [address] [phone] NURSE PRACTITIONER 11/03/20 07/04/23 Miguelina Hanson MD [address] [phone] INTERVENTIONAL CARDIOLOGY 07/05/23 Meghann Chicas, ANP- [address] [place] [address] Nurse Practitioner NURSE PRACTITIONER ADULT HEALTH 07/05/23 documented as of this encounter
--- OUTSIDE RECORDS SUMMARY | 2024-09-17 08:17 | XMS_ITS | Clinical Summary ---
Author Organization 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 Gender Identity Not on file Sexual Orientation Not on file Obstetrics History Para Term AB IAB SAB Ectopic Multiple Livin g Live Births 3 3 3 3 Date Outcome GA Total Labor Labor/2nd/3rd Weight Sex Type Anes PTL Goldie A1 A5 Name Clin Term Term Term Last Filed Vital Signs Vital Sign Reading Time Taken Comments Blood Pressure 129/76 03/08/2022 12:10 PM HEALTH DATA ANALYST Pulse 87 03/08/2022 12:10 PM HEALTH DATA ANALYST Temperature 36.7 C (98 F) 03/08/2022 12:10 PM HEALTH DATA ANALYST Respiratory Rate 16 03/08/2022 12:10 PM HEALTH DATA ANALYST Oxygen Saturation 98% 03/08/2022 12:10 PM HEALTH DATA ANALYST Inhaled Oxygen Concentration - - Weight 54.4 kg (120 lb) 12/19/2022 6:27 AM CDT Height 167.6 cm (5' 6) 12/19/2022 6:27 AM CDT Body Mass Index 19.37 12/19/2022 6:27 AM CDT Plan of Treatment Upcoming Encounters Date Type Department Care Team (Late st Contact Info) Description 09/19/2024 12:00 PM CDT Hospital Encounter [address] [address] Lakshmi Kern MD [address] [facility] [address] [place] [address] 09/19/2024 12:00 PM CDT - 09/19/2024 12:30 PM CDT Surgery [address] [address] Lakshmi Kern MD [address] [facility] [address] [place] [address] COLONOSCOPY Scheduled Procedures Name Priority Associated Diagnoses [...] ID:[id number] Group ID:Not on file Type:COMMERCIAL Address: [address] [employer] Care Teams Process Control Programmer Relationship Specialty Start Date End Date Aydee Reese MD [address] [place], [place] [phone] PCP - General 05/24/16 No, Physician 02/18/19
--- OUTSIDE RECORDS SUMMARY | 2024-09-17 08:17 | XMS_ITS | Referral Summary ---
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 Gender Identity Not on file Sexual Orientation Not on file Last Filed Vital Signs Vital Sign Reading Time Taken Comments Blood Pressure 129/76 03/08/2022 12:10 PM ALIGNER BARREL AND RECEIVER Pulse 87 03/08/2022 12:10 PM ALIGNER BARREL AND RECEIVER Temperature 36.7 C (98 F) 03/08/2022 12:10 PM ALIGNER BARREL AND RECEIVER Respiratory Rate 16 03/08/2022 12:10 PM ALIGNER BARREL AND RECEIVER Oxygen Saturation 98% 03/08/2022 12:10 PM ALIGNER BARREL AND RECEIVER Inhaled Oxygen Concentration - - Weight 54.4 kg (120 lb) 12/19/2022 6:27 AM CDT Height 167.6 cm (5' 6) 12/19/2022 6:27 AM CDT Body Mass Index 19.37 12/19/2022 6:27 AM CDT Plan of Treatment Upcoming Encounters Date Type Department Care Team (Late st Contact Info) Description 09/19/2024 12:00 PM CDT Hospital Encounter [facility] [address] [place] [address] Lakshmi Kern MD 4 [facility] [address] [place] [address] 09/19/2024 12:00 PM CDT - 09/19/2024 12:30 PM CDT Surgery [address] [address] Lakshmi Kern MD 4 [facility] [address] [place] [address] COLONOSCOPY Scheduled Procedures Name Priority Associated Diagnoses [...] AETNA SENIOR SUPPLEMENT MEDICARE AETNA SENIOR SUPPLEMENT [facility] HMO/PPO Address: [address] [address] [place] [address] Care Teams Transcribing Operator Head Relationship Specialty Start Date End Date Aydee Reese MD [address] [place] [address] PCP - General 05/24/16 No, Physician 02/18/19
--- OUTSIDE RECORDS SUMMARY | 2024-09-17 08:17 | XMS_ITS | Encounter Summary ---
Author Organization [facility] Address [facility] [place] [address] Care Team Providers Care Nuclear Medicine Chief Technologist Name Role Phone Aydee Reese MD Primary Care Provider Te Patino MD Unavailable [phone] Mirta Choi APRN FENCE ERECTOR SUPERVISOR-C Unavailable Miguelina Hanson MD Unavailable Meghann Chicas ANP-BC Unavailable [phone] Encounter Details Date Type Department Care Team (Late st Contact Info) Description 12/16/2019 Hospital Orders Only [facility] [address] [place] [address] Christi Vasquez Anesthesia Record Procedure Summary Procedure [...] documented as of this encounter Care Teams Nuclear Medicine Chief Technologist Relationship Specialty Start Date End Date Aydee Reese MD [address] [place] [address] PCP - General INTERNAL MEDICINE 09/02/15 Te Patino MD [address] [place] [phone] [place] Legal File Clerk CARDIOVASCULAR DISEASE 09/02/15 07/04/23 Mirta Choi APRN, FENCE ERECTOR SUPERVISOR-C [address] [phone] NURSE PRACTITIONER 11/03/20 07/04/23 Miguelina Hanson MD [address] [phone] INTERVENTIONAL CARDIOLOGY 07/05/23 Meghann Chicas, ANP- [address] [place] [address] Nurse Practitioner NURSE PRACTITIONER ADULT HEALTH 07/05/23 documented as of this encounter
== END 2024-09-17 08:14 | disposition home or self-care (01) ==
PROVIDERS: PCP Internal Medicine; Visit Provider Internal Medicine
DX: N28.1 Cyst of kidney, acquired (principal)
CPT/HCPCS: 76700

== ENCOUNTER 2024-10-06 08:29 | Outpatient (RCR) | payer MEDICARE, SELFPAY ==
[2024-07-15 11:10] LABS: INR 1.7; Prothrombin Time 18.3 Seconds (9.50-12.1)
[2024-07-22 14:57] LABS: INR 3.7; Prothrombin Time 35.8 Seconds (9.50-12.1)
[2024-08-05 09:12] LABS: INR 4.4; Prothrombin Time 42.1 Seconds (9.50-12.1)
[2024-08-12 10:51] LABS: INR 2.3; Prothrombin Time 23.3 Seconds (9.50-12.1)
[2024-09-15 08:25] LABS: INR 1.6; Prothrombin Time 16.9 Seconds (9.50-12.1)
[2024-09-22 08:04] LABS: INR 1.3; Prothrombin Time 14.4 Seconds (9.50-12.1)
[2024-09-24 09:19] LABS: INR 1.6; Prothrombin Time 16.7 Seconds (9.50-12.1)
[2024-09-26 09:45] LABS: INR 1.6; Prothrombin Time 17.1 Seconds (9.50-12.1)
[2024-09-29 09:11] LABS: INR 2.1; Prothrombin Time 21.9 Seconds (9.50-12.1)
[2024-10-03 08:21] LABS: INR 2.0; Prothrombin Time 21.1 Seconds (9.50-12.1)
[2024-10-06 08:52] LABS: INR 2.6; Prothrombin Time 26.5 Seconds (9.50-12.1)
== END 2024-10-13 23:59 | disposition home or self-care (01) ==
LOC: CHSLAB 08:29
PROVIDERS: PCP Internal Medicine; Visit Provider Internal Medicine
DX: Z51.81 Encounter for therapeutic drug level monitoring (principal); Z79.01 Long term (current) use of anticoagulants
CPT/HCPCS: 36415; 85610

== ENCOUNTER 2024-10-09 08:34 | Outpatient (CLI) | payer MEDICARE, SELFPAY ==
--- NOTE | 2024-10-09 | CONSULT_PTH ---
PATIENT: Meghann Barbosa LOC: [facility]#:[id number] AGE/SX: 69/F ROOM: RE10/09/[address]: Aydee eRese MD : 1955 BED: DIS: 10/09/2024 SPEC #: [id number] RECD: 10/09/24 09:30 STATUS: TENZIN REQ #: [id number] AUBRIE: 10/09/24 00:[address]: Aydee Reese DEPT: [facility] Consult RECD BY: Lupe Murphy MLT, ([facility]) Tissues: A - Peripheral Smear Procedures: Hematology Consult
--- OUTSIDE RECORDS SUMMARY | 2024-10-09 08:39 | XMS_ITS | Referral Summary ---
Author Organization [facility] Address [address] [place] [phone] Care Team Providers Care Obstetrics Nurse Name Role Phone Aydee Reese MD Primary Care Provider [phone] No, Physician Unavailable Encounters Date Type Department Care Team Description 09/22/2024 Results Follow-Up [facility] Gastroenterology at [address] [place] [address] Lakshmi Kern MD Surgical pathology 09/19/2024 10:57 AM CDT Anesthesia Event [address] [address] Clinton Quintana DO Gill, Matthew, AIRBORNE SENSOR SPECIALIST 09/19/2024 11:00 AM CDT - 09/19/2024 11:30 AM CDT Surgery [address] [address] Lakshmi Kern MD COLON BIOPSY 09/19/2024 9:57 AM CDT - 09/19/2024 12:44 PM CDT Hospital Encounter [address] [address] Lakshmi Kern MD Melena; Rectal abscess; Ulcerative proctitis with complication (HCC); History of colonic polyps Discharge Disposition: Discharge to home or self care 09/10/2024 Telephone [facility] Gastroenterology at [address] [place] [phone] Andree Rucker from Last 3 Months Allergies No known active allergies Medications warfarin (COUMADIN) 5 mg tablet Take 6 mg by mouth daily 9 Active alendronate (FOSAMAX) 70 mg tablet Take 1 tablet (70 mg total) by mouth 9 Active aspirin 81 mg enteric coated tablet Take 1 tablet (81 mg total) by mouth daily Active butalbital-acet aminophen-caffe ine (ESGIC) 50-325-40 mg per tablet Take 1 tablet by mouth as needed 9 Active cetirizine (ZyrTEC) 10 mg tablet Take 10 mg by mouth daily as needed Active cholecalciferol (VITAMIN D-3) 2000 unit capsule Take 50 mcg by mouth daily Once a week 2 Active magnesium oxide (MAG-OX) 400 mg (241.3 mg elemental magnesium) tablet Take 1 tablet (400 mg total) by mouth daily 6 Active enoxaparin (LOVENOX) 60 mg/0.6 mL syringe Inject 0.5 mL (50 mg total) under the skin 2 (two) times a day Active hydrocortisone 2.5 % cream Apply topically 2 (two) times a day 30 g 1 5 10/20/19 25 Active Active Problems Problem Noted Date Diagnosed Date Melena 09/10/2024 Rectal abscess 09/10/2024 Ulcerative proctitis with complication 5 History of colonic polyps 09/10/2024 Mitral [...] drink = 0.6 oz pur e alcohol) AUDIT-C Answer Date Recorded Q1: How often do you have a drink containing alcohol? Never 09/19/2024 Q2: How many drinks containi ng alcohol do you have on a typical day when you are drinking? Patient does not drink Q3: How often do you have si x or more drinks on one occasion? Never 09/19/2024 Personal Safety Answer Date Recorded Have you ever been in or are you currently in a harmful physical or emotional relationship or is someone making you feel afraid or unsafe? 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 Gender Identity Not on file Sexual Orientation Not on file Last Filed Vital Signs Vital Sign Reading Time Taken Comments Blood Pressure 123/73 09/19/2024 12:00 PM CDT Pulse 84 09/19/2024 12:00 PM CDT Temperature 36.2 C (97.1 F) 09/19/2024 12:00 PM CDT Respiratory Rate 16 09/19/2024 12:00 PM CDT Oxygen Saturation 99% 09/19/2024 12:00 PM CDT Inhaled Oxygen Concentration - - Weight 50.8 kg (112 lb) 09/19/2024 10:06 AM CDT Height 167.6 cm (5' 6) 09/19/2024 10:06 AM CDT Body Mass Index 18.08 09/19/2024 10:06 AM CDT Plan of Treatment Not on file Procedures Procedure Name Priority Date/Time Associated Diagnosis Comments SURGICAL PATHOLOGY STAT 09/19/2024 12 :06 PM CDT Melena Rectal abscess Ulcerative proctitis with complication (HCC) History of colonic polyps COLON BIOPSY 09/19/2024 10:48 AM CDT Melena Rectal abscess Ulcerative proctitis with complication (HCC) History of colonic polyps COLONOSCOPY 09/19/2024 9:58 AM CDT from Last 3 Months Results * Surgical pathology (09/19/2024 12:06 PM CDT) Tissue (Colon, Biopsy) 09/19/2024 11:23 AM CDT Narrative PATHOLOGY [facility] - 09/22/2024 10:49 AM CDT EPIC results best viewed via link to PDF [facility] Department of Pathology [address] [place] [address] Note to Patients: This report may contain a detailed description of human tissue sent by a health care provider to the laboratory for pathologic evaluation. The content of this report is essential for diagnosis and may provide important critical findings. This information may be unfamiliar to patients to review without a medical professional present. It is advised that the patient review this report in the presence of a health care provider who can answer questions and explain the details. Final Report Patient Name: MEGHANN TOVAR Address: [address] [place] [address]- Gender: F : 1955 (Age: 69) Service: Gastro Location: [facility] Hospital #: [id number] Patient Type: [facility] Taken: 09/19/2024 Received: 09/19/2024 Accessioned: 09/19/2024 Reported: 09/22/2024 Physician(s):Dr. Lakshmi Kern M.D. Diagnosis: Ascending colon, biopsy: - Benign colonic mucosa with mild nonspecific superficial lamina propria hemorrhage and congestion. - Negative for significant acute inflammation and dysplasia. Lucas Hartley M.D. Report Electronically Reviewed and Signed Out By Lucas Hartley M.D. 09/22/2024 10:49:32 Specimen(s) Received: A: Ascending colon biopsies Microscopic Description: Sections show fragments of benign colonic mucosa which show some mild nonspecific superficial lamina propria hemorrhage and congestion. No significant acute inflammatory infiltrate is seen. No crypt disarray is present. There is no evidence of dysplasia. Clinical History: Melena. Rectal abscess. Ulcerative proctitis with complication. History of colonic polyps. Colonoscopy. Gross Description: The specimen is submitted in a single formalin filled container labeled MEGHANN WALKERERARO and ascending colon. It is 3 buck tissue fragments between 1 and 2 mm. All in one cassette. Mor Arthur R.N., P.A./Rosetta Lu M.D. REPORT IMAGES AND SCANNED DOCUMENTS, IF INCLUDED, ONLY VIEWABLE IN PDF VERSION OF REPORT The performance characteristics of some immunohistochemical stains, fluorescence in-situ hybridization tests and immunophenotyping by flow cytometry cited in this report (if any) were determined by the Surgical Pathology Department at [facility] as part of an ongoing air quality specialist program and in compliance with federally mandated regulations drawn from the Clinical Laboratory Improvement Act of 1988 (CLIA '88). Some of these tests rely on the use of analyte specific reagents and are subject to specific labeling requirements by the US Food and Drug Administration. Such diagnostic tests may only be performed in a facility that is certified by the Department of Health and Human Services as a high complexity laboratory under CLIA '88. The FDA has determined that such clearance or approval is not necessary. This test is used for clinical purposes. It should not be regarded as investigational or for research. Nevertheless, federal rules concerning the medical use of analyte specific reagents require that the following disclaimer be attached to the report: This test was developed and its performance characteristics determined by the Surgical Pathology Department [facility]. It has not been cleared or approved by the U. S. Food and Drug Administration. Note for decalcified specimens: This assay has not been validated on decalcified tissues. Results should be interpreted with caution given the possibility of false negativity on decalcified specimens us Lakshmi Kern MD LAB PATHOLOGY ORDERABLES F inal Result PATHOLOGY [facility] [address] [place] [address] * Colonoscopy (09/19/2024 9:58 AM CDT) Anatomical Region Laterality Modality Other Narrative Procedure Note Lakshmi Kern MD - 09/19/2024 9:58 AM CDT Digestive [facility] Patient Name: Meghann Tovar Procedure Date: 09/19/2024 9:58 AM Date of : 1955 Admit Type: Outpatient Age: 69 Gender: Female Attending MD: Lakshmi Kern M.D. Room: [facility] ENDOSCOPY ROOM 1 Note Status: Finalized Patient Profile: This is a 69 year old female. Patient has historyof polyps in the past. Last colonoscopy 2015. Noted recent episodes of bright red bleeding perrectum. Procedure: Colonoscopy Indications: Surveillance: Personal history of colonic polyps (unknown histology) on last colonoscopy more than 5 years ago, Last colonoscopy: October 2015 Referring MD: Aydee Reese M.D. Providers: Lakshmi Kern M.D. Impression: - The entire examined colon is normal overall withthe submucosal hemorrhages from colonoscopypreparation. Biopsied. - Diverticulosis in the sigmoid colon. - Internal and external hemorrhoids hemorrhoids. Recommendation: - Repeat colonoscopy in 10 years for screening purposes. - Continue present medications. - Use Anusol Hydrocortisone cream per anus twicedaily for 2 weeks. Prescription sent to pharmacy. - Maintain high-fiber diet. Medicines: Monitored Anesthesia Care Complications: No immediate complications. Estimated Blood Loss: Estimated blood loss: none. Procedure: Pre-Anesthesia Assessment: - Prior to the procedure, a History and Physicalwas performed, and patient medications and allergieswere reviewed. The patient's tolerance of previous anesthesia was also reviewed. The risks andbenefits of the procedure and the sedation options and risks were discussed with the patient. All questions were answered, and informed consent was obtained. Prior Anticoagulants: The patient has taken noanticoagulant or antiplatelet agents. ASA Grade Assessment: Per anesthesia note and evaluation. After reviewing the risks and benefits, the patient was deemed in satisfactory condition to undergo the procedure. The benefits, risks and alternatives of theprocedure and sedation were discussed and informed consentwas obtained. All questions were answered. Please referto the signed informed consent document in the medical record. The bowel preparation used was Miralax and bisacodyl tablets via split dose instruction. The scope was passed under direct vision. The Pediatric Colonoscope PCF-H190L [id number] was introducedthrough the anus and advanced to the the cecum, identifiedby appendiceal orifice and ileocecal valve. Thequality of the bowel preparation was good. Bowel prep was administered using a split dose. Findings: Small external hemorrhoids with a thrombosed segment were found on perianal exam. The cecum appeared normal. The colon (entire examined portion) appeared normal. There was mild diffuse submucosal hemorrhages likely secondary to the colonpreparation or the colonoscopy insufflation. Mainly in the transverse colon ascending colon. Biopsies were taken with a cold forceps forhistology. Many medium-mouthed diverticula were found in the sigmoid colon with sharp angulation in the distal sigmoid colon. No polyps and no mass lesions noted in the colon. Internal hemorrhoids were found during retroflexion. The hemorrhoids were small. Electronically signed by Lkashmi Kern M.D. Lakshmi Kern M.D. 09/19/2024 11:48:29 AM Number of Addenda: 0 Note Initiated On: 09/19/2024 9:58 AM Procedure Code(s): --- Professional --- 67330, Colonoscopy, flexible; with biopsy, single or multiple Diagnosis Code(s): --- Professional --- Z86.010, Personal history of colonic polyps K64.8, Other hemorrhoids K57.30, Diverticulosis of large intestine without perforation orabscess without bleeding CPT copyright 2020 [employer]. All rights reserved. The codes documented in this report are preliminary and upon straw hat machine operator reviewmay be revised to meet current compliance requirements. Recognized by the [place] [employer] for promoting quality in endoscopy Lakshmi Kern MD ENDOSCOPY PROCEDURES Final Result from Last 3 Months Insurance MEDICARE AETNA SENIOR SUPPLEMENT MEDICARE AETNA SENIOR SUPPLEMENT MEDICARE AETNA SENIOR SUPPLEMENT [place] [address] Advance Directives For more information, please contact: [phone] * Full Code (Latest Code Status on File) Date Activated Date Inactivated Comments 09/19/2024 10:03 AM 09/19/2024 4:44 PM * Full Code Date Activated Date Inactivated Comments 09/19/2024 10:03 AM 09/19/2024 10:03 AM Care Teams Obstetrics Nurse Relationship Specialty Start Date End Date Aydee Reese MD [address] [place] [address] PCP - General 05/24/16 No, Physician 02/18/19
--- OUTSIDE RECORDS SUMMARY | 2024-10-09 08:39 | XMS_ITS | Clinical Summary ---
Author Organization [facility] Address [address] [place] [phone] Care Team Providers Care Primary Clinician Name Role Phone Aydee Reese MD Primary [...] Department Care Team Description 09/22/2024 Results Follow-Up [facility] Gastroenterology at [address] [place] [address] Lakshmi Kern MD Surgical pathology 09/19/2024 11:00 AM CDT - 09/19/2024 11:30 AM CDT Surgery [address] [address] Lakshmi Kern MD COLON BIOPSY 09/19/2024 10:57 AM CDT Anesthesia Event [address] [address] Clinton Quintana DO Gill, Matthew, CRNA 09/19/2024 9:57 AM CDT - 09/19/2024 12:44 PM CDT Hospital Encounter [address] [address] Lakshmi Kern MD Melena; Rectal abscess; Ulcerative proctitis with complication (HCC); History of colonic polyps Discharge Disposition: Discharge to home or self care 09/10/2024 Telephone [facility] Gastroenterology at [address] [place] [address] Andree Rucker from Last 3 Months Immunizations Immunization Administration Dates Next Due Hep B, Adolescent or Pediatric 05/22/1991,1990,11/19/1990 Influenza, Quadrivalent, Spl it, Preservative Free, Intramuscular 12/01/2018,11/23/2016 Influenza, Trivalent, IM (MDV) 2015 Influenza, Unspecified 12/04/2017 Pneumococcal Conjugate PCV 13 2015 Tdap 10/16/2011 ZOSTER LIVE 09/28/2016 ZOSTER Recombinant 05/18/2018,03/02/2018, 018 Surgical History Surgery Date Site/Laterality Comments IMAGE GUIDED PARACENTESIS ABDOMEN 11/11/2015 N/A COLONOSCOPY 10/11/2015 - 11/10/2015 COLONOSCOPY 09/19/2024 MITRAL VALVE REPLACEMENT 06/11/2015 - 07/10/2015 Mechanical valve HEART SURGERY 03/12/2016 - 03/11/2017 Patient states ablation to different nodes in her heart that were firing too much. 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 Gender Identity Not on file Sexual [...] 09/19/2024 10:06 AM CDT Plan of Treatment Health Maintenance Due Date Last Done Comments Breast Cancer Screening-Mammogram 1955 Depression Screening 1955 Hepatitis C Screening 1955 Osteoporosis Screening-Bone Density Scan 1955 Pneumococcal vaccine 65+ (2 of 2 - PPSV23) 01/18/2016 2015 Well Visit 65+ 01/18/2020 DTaP/Tdap/Td Vaccine (2 - Td or Tdap) 10/15/2021 10/16/2011 Influenza Vaccine (#1) 2024 , 12/01/2018, 12/04/2017, Additional history exists Fall Risk Assessment 09/19/2025 09/19/2024 Colon Cancer Screening-Colonoscopy 09/19/2034 09/19/2024, 10/22/2015 Hepatitis B Screening Completed 05/22/1991 , 12/17/1990, 11/19/1990 Zoster Vaccine Completed 05/18/2018, 02/10, 12/01/2017, Additional history exists Colon Cancer Screening-CT Colonography Discontinued 09/19/2024, 10/22/2015 Colon Cancer Screening-DNA Stool Discontinued 09/20/19, 10/22/2015 Colon Cancer Screening-FIT Discontinued 09/19/2024, Colon Cancer Screening-Sigmoidoscopy Discontinued 09/19/2024, 10/22/2015 Procedures Procedure Name Priority Date/Time Associated Diagnosis [...] Biopsy) 09/19/2024 11:23 AM CDT Narrative PATHOLOGY [facility] - 09/22/2024 10:49 AM CDT EPIC results best viewed via link to PDF [facility] Department of Pathology [address] [place] [address] Note to Patients: This report may contain [...] Final Report Patient Name: MEGHANN TOVAR Address: [address] [place] [address]- Gender: F : 1955 (Age: 69) Service: Gastro Location: [facility] Hospital #: [id number] Patient Type: [facility] Taken: 09/19/2024 Received: 09/19/2024 Accessioned: 09/19/2024 Reported: [...] a single formalin filled container labeled MEGHANN TOVAR and ascending colon. It is 3 buck [...] determined by the Surgical Pathology Department at [facility] as part of an ongoing lead quality technician program and in compliance with federally mandated [...] characteristics determined by the Surgical Pathology Department [facility]. It has not been cleared or approved by the U. S. Food and Drug Administration. Note for decalcified specimens: This assay has not been validated on decalcified tissues. Results should be interpreted with caution given the possibility of false negativity on decalcified specimens Lakshmi Kern MD LAB PATHOLOGY ORDERABLES F inal Result Performing Organization Address City/State/[facility] Co de Phone Number PATHOLOGY [address] [phone] * Colonoscopy (09/19/2024 9:58 AM CDT) Anatomical Region Laterality Modality Other Narrative Procedure Note Lakshmi Kern MD - 09/19/2024 9:58 AM CDT [facility] Patient Name: Meghann Tovar Procedure Date: 09/19/2024 9:58 AM Date of : 1955 Admit Type: Outpatient Age: 69 Gender: Female Attending MD: Lakshmi Kern M.D. Room: [facility] ENDOSCOPY ROOM 1 Note Status: Finalized Patient [...] under direct vision. The Pediatric Colonoscope PCF-H190L [id number] was introducedthrough the anus and advanced to [...] The hemorrhoids were small. Electronically signed by Lakshmi Kern M.D. Lakshmi Kern M.D. 09/19/2024 11:48:29 AM Number of Addenda: 0 Note Initiated On: 09/19/2024 9:58 AM Procedure Code(s): --- Professional --- 91917, Colonoscopy, flexible; with biopsy, single or multiple Diagnosis Code(s): --- Professional --- Z86.010, Personal history of colonic polyps K64.8, Other hemorrhoids K57.30, Diverticulosis of large intestine without perforation orabscess without bleeding CPT copyright 2020 [employer]. All rights reserved. The codes documented in this report are preliminary and upon rail transportation operator reviewmay be revised to meet current compliance requirements. Recognized by the [employer] for promoting quality in endoscopy Lakshmi Kern MD ENDOSCOPY PROCEDURES Final Result from Last 3 Months Insurance MEDICARE [facility] MEDICARE AETNA [place] [address] MEDICARE AET SENIOR SUPPLEMENT [facility] HMO/PPO Address: [address] [address] Advance Directives For more information, please contact: [phone] * Full Code (Latest Code Status on File) Date Activated Date Inactivated Comments 09/19/2024 10:03 AM 09/19/2024 4:44 PM * Full Code Date Activated Date Inactivated Comments 09/19/2024 10:03 AM 09/19/2024 10:03 AM Care Teams Primary Clinician Relationship Specialty Start Date End Date Aydee Reese MD [address] [place] [address] PCP - General 05/24/16 No, Physician 02/18/19
--- OUTSIDE RECORDS SUMMARY | 2024-10-09 08:41 | XMS_ITS | Clinical Summary ---
Author Organization [facility] Address [facility] [place] [address] Care Team Providers Care Slab Puller Name Role Phone Aydee Reese MD Primary Care Provider [phone] Miguelina Hanson MD Unavailable [phone] Meghann Chicas [facility]- Unavailable [phone] Allergies No known active allergies Medications magnesium [...] 01/12/2021 Mixed hyperlipidemia 10/25/2019 Postoperative atrial fibrillation ([facility]) 04/30/2019 H/O mitral valve replacement 09/03/2015 GERD (gastroesophageal reflux disease) Mitral valve disease PFO (patent foramen ovale) ([facility]) Overview (10/26/2016): s/p closure Family History [...] Comments Blood Pressure 124/72 01/21/2024 11:46 AM HOTEL GUEST SERVICE AGENT Pulse 86 01/21/2024 11:46 AM HOTEL GUEST SERVICE AGENT Temperature 36.5 C (97.7 F) 12/19/2019 5:09 AM CDT Respiratory Rate 20 12/21/2022 11:00 AM CDT Oxygen Saturation 100% 01/21/2024 11:46 AM HOTEL GUEST SERVICE AGENT Inhaled Oxygen Concentration - - Weight 54 kg (119 lb) 01/21/2024 11:46 AM HOTEL GUEST SERVICE AGENT Height 167.6 cm (5' 6) 01/21/2024 11:46 AM HOTEL GUEST SERVICE AGENT Body Mass Index 19.21 01/21/2024 11:46 AM HOTEL GUEST SERVICE AGENT Plan of Treatment Health Maintenance Due Date [...] 2:41 PM 12/19/2019 8:25 PM Care Teams Slab Puller Relationship Specialty Start Date End Date Aydee Reese MD [address] [place] [phone] PCP - General INTERNAL MEDICINE 09/02/15 Miguelina Hanson MD [address] [place] [phone] INTERVENTIONAL CARDIOLOGY 07/05/23 Meghann Chicas, ANP- [address] [place] [address] Nurse Practitioner NURSE PRACTITIONER ADULT HEALTH 07/05/23
--- OUTSIDE RECORDS SUMMARY | 2024-10-09 08:41 | XMS_ITS | Encounter Summary ---
Author Organization [facility] Address [address] [place] [address] Care Team Providers Care Human Resources Advisor Name Role Phone Aydee Reese MD Primary Care Provider Te Patino MD Unavailable Mirta Choi APRN, NP-C Unavailable Miguelina Hanson MD Unavailable [phone] Meghann Chicas ANP-BC Unavailable [phone] Encounter Details Date Type Department Care Team (Late st Contact Info) Description 10/23/2017 Abstract [facility] [address] [place] [phone] Te Patino MD [address] [place] [address] Social History Tobacco Use Types [...] documented as of this encounter Care Teams Human Resources Advisor Relationship Specialty Start Date End Date Aydee Reese MD [address] [place] [phone] PCP - General INTERNAL MEDICINE 09/02/15 Te Patino MD [address] [place] [phone] [place] [employer] Business Analyst CARDIOVASCULAR DISEASE 09/02/15 07/04/23 Mirta Choi APRN, DIVEMASTER-C [address] [phone] NURSE PRACTITIONER 11/03/20 07/04/23 Miguelina Hanson MD [address] [phone] INTERVENTIONAL CARDIOLOGY 07/05/23 Meghann Chicas, ANP- [address] [place] [id number] Nurse Practitioner NURSE PRACTITIONER ADULT HEALTH 07/05/23 documented as of this encounter
--- OUTSIDE RECORDS SUMMARY | 2024-10-09 08:41 | XMS_ITS | Encounter Summary ---
Author Organization [facility] Healthcare Address [address] [place] [address] Care Team Providers Care Irrigation Pump Installer Name Role Phone Aydee Reese MD Primary Care Provider No, Physician Unavailable Encounter Details Date Type Department Care Team (Latest Contact Info) Description 09/22/2024 Results Follow-Up 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
[2024-10-09 08:58] LABS: Hematocrit 43.1 % (35.0-42.0); Hemoglobin 13.8 g/dL (11.7-13.8); Mean Corpuscular HGB Conc 32.0 g/dL (32-36); Mean Corpuscular Hemoglobin 30.7 pg (27.0-31.0); Mean Corpuscular Volume 96.0 fL (78.0-102.0); Platelet Count Result 259 K/mm3 (150-420); Red Blood Count 4.49 M/mm3 (4.20-5.40); White Blood Count 3.6 K/mm3 (4.8-10.8)
[2024-10-09 09:00] LABS: Add Urine Microscopic? NO; Appearance Urine Clear (Clear); Glucose Urine UA Negative (Negative); Leukocyte Esterase Ur Negative LEU/UL (Negative); Nitrate Urine Negative (Negative); Specific Grav Ur 1.025 (1.010-1.020)
[2024-10-09 09:11] LABS: INR 3.2; Prothrombin Time 31.9 Seconds (9.50-12.1)
[2024-10-09 09:24] LABS: Alanine Aminotransferase 48 U/L (6-35); Albumin Level 4.4 g/dL (3.5-5.1); Alkaline Phosphatase 70 U/L (38-126); Anion Gap 2 mmol/L (4-12); Aspartate Amino Transferase 45 U/L (14-36); Bilirubin,Total 0.7 mg/dL (0.2-1.3); Blood Urea Nitrogen 16 mg/dL (7-17); Calcium 9.1 mg/dL (8.4-10.2); Carbon Dioxide 30 mmol/L (22-30); Chloride 106 mmol/L (98-107); Cholesterol 225 mg/dL (0-200); Estimated Glomerular Filt Rate > 60; Glucose 88 mg/dL (65-110); HDL Direct 85 mg/dL; Osmolality Calculated 286 mOsm/kg (285-295); Potassium 4.3 mmol/L (3.4-5.0); Sodium 138 mmol/L (137-145); Total Protein 6.5 g/dL (6.3-8.2); Triglycerides 125 mg/dL (<150)
[2024-10-09 09:26] LABS: Band Neutrophils Percent 0 % (0-6); Lymphocytes Absolute Manual 1.26 K/mm3 (1.1-4.5); Lymphocytes Percent Manual 35 % (18-44); Monocytes Absolute Manual 0.14 K/mm3 (0.1-0.90); Monocytes Percent Manual 4 % (3-9); Neutrophils Absolute Manual 2.19 K/mm3 (1.3-6.7); Neutrophils Percent Manual 61 % (46-73); Total Cells Counted 100
[2024-10-09 09:42] LABS: Free T4 Free Thyroxine 1.20 ng/dL (0.78-2.19)
[2024-10-09 09:43] LABS: Free T3 3.32 pg/mL (2.18-3.98)
[2024-10-09 09:55] LABS: Thyroid Stimulating Hormone 2.350 uIU/mL (0.465-4.680)
[2024-10-09 10:15] LABS: Vitamin B12 381.0 pg/mL (239-931)
[2024-10-09 15:50] LABS: Iron 75 ug/dL (37-170)
[2024-10-09 17:39] LABS: Ferritin 23.50 ng/mL (11.1-264)
[2024-10-10 13:08] LABS: Folate, Hemolysate 357.0 ng/mL (Not Estab.); Folate, RBC 804 ng/mL (>498); Hematocrit 44.4 % (34.0-46.6)
== END 2024-10-09 08:35 | disposition home or self-care (01) ==
LOC: CHSLAB 08:37
PROVIDERS: PCP Internal Medicine; Visit Provider Internal Medicine
DX: Z79.01 Long term (current) use of anticoagulants (principal); E78.2 Mixed hyperlipidemia; N39.0 Urinary tract infection, site not specified; M81.0 Age-related osteoporosis without current pathological fracture; D64.9 Anemia, unspecified; R53.83 Other fatigue
CPT/HCPCS: 36415; 80053; 80061; 81003; 82306; 82607; 82728; 82747; 83540; 84439; 84443; 84481; 85025; 85610

== ENCOUNTER 2024-11-18 07:42 | Outpatient (CLI) | payer MEDICARE, SELFPAY ==
--- NOTE | ~2024-11-18 | DEXA_ITS ---
Bone Density Report Name: PETER TOVAR Age: 69 Sex: Female Ethnicity: White Date of : 1955 Indication: osteopenia; hysterectomy; Referring Provider: Aydee Reese Study: Bone densitometry was performed. Exam Date: November 18, 2024 Accession number: [id number] Bone Density: Region BMD T-score Z-score Classification AP Spine(L1-L4) 0.864 -1.7 0.4 Osteopenia Femoral Neck (Left) 0.724 -1.1 0.7 Osteopenia Total Hip (Left) 0.882 -0.5 1.0 Normal Femoral Neck (Right) 0.721 -1.2 0.6 Osteopenia Total Hip (Right) 0.853 -0.7 0.8 Normal Femoral Neck Mean 0.723 -1.1 0.6 Osteopenia Total Hip Mean 0.867 -0.6 0.9 Normal World Health Organization criteria for BMD impression classify patients as: Normal (T-score at or above -1.0), Osteopenia (T-score between -1.0 and -2.5), or Osteoporosis (T-score at or below -2.5). 10-year Fracture Risk(1): Major Osteoporotic Fracture 7.5% Hip Fracture 0.9% Reported Risk Factors: [place] (), Neck BMD=0.721, BMI=19.0 (1) FRAX(R) Version 3.08. Fracture probability calculated for an untreated patient. Fracture probability may be lower if the patient has received treatment. Previous Exams: Region Exam Age BMD T-score BMD Change BMD Change Date g/cm2 vs Baseline vs Previous AP Spine (L1-L4) 11/18/2024 69 0.864 -1.7 -0.198 (-18.6% -0.010 (-1.2%) 11/17/2022 67 0.874 -1.6 -0.188 (-17.7% 0.007 (0.8%) 11/01/2020 65 0.866 -1.6 -0.195 (-18.4% -0.018 (-2.0%) 10/31/2018 63 0.884 -1.5 -0.177 (-16.7% -0.016 (-1.8%) 10/06/2016 61 0.901 -1.3 -0.161 (-15.1% -0.073 (-7.5%) 09/26/2013 58 0.973 -0.7 -0.088 (-8.3%) -0.090 (-8.4%) 10/01/2009 54 1.063 0.1 0.002 (0.2%) 0.002 (0.2%) 01/18/2007 52 1.061 0.1 Total Hip(Left) 11/18/2024 69 0.882 -0.5 -0.053 (-5.7%) 0.024 (2.8%) 11/17/2022 67 0.858 -0.7 -0.077 (-8.2%) 0.036 (4.4%)* 11/01/2020 65 0.821 -1.0 -0.113 (-12.1% 0.072 (9.6%)# 10/31/2018 63 0.750 -1.6 -0.185 (-19.8% -0.048 (-6.0%) 10/06/2016 61 0.798 -1.2 -0.137 (-14.6% -0.042 (-5.0%) 09/26/2013 58 0.840 -0.8 -0.094 (-10.1% -0.081 (-8.8%) 10/01/2009 54 0.921 -0.2 -0.013 (-1.4%) -0.013 (-1.4%) 01/18/2007 52 0.935 -0.1 Total Hip(Right) 11/18/2024 69 0.853 -0.7 -0.052 (-5.7%) 0.002 (0.2%) 11/17/2022 67 0.851 -0.7 -0.054 (-6.0%) 0.072 (9.2%)* 11/01/2020 65 0.779 -1.3 -0.126 (-13.9% 0.064 (8.9%)# 10/31/2018 63 0.715 -1.9 -0.190 (-20.9% -0.063 (-8.1%) 09/26/2013 58 0.779 -1.3 -0.126 (-13.9% -0.108 (-12.1% 10/01/2009 54 0.886 -0.5 -0.018 (-2.0%) -0.018 (-2.0%) 01/18/2007 52 0.905 -0.3 *Denotes significance at 95% confidence level, LSC for AP Spine = 0.022 g/cm2, LSC for Total Hip = 0.027 g/cm2 # Denotes dissimilar scan types or analysis methods Clinical Information Provided by Patient: Has used the following medications: Vitamin D Has the following medical conditions: Hysterectomy Patient maximum height was 66.7 Menopause Age: 50 Drinks caffeinated beverages Onset of menses at age 12 Number of children 3 Impression: The patient has low bone mass, based on the Total Spine T-score. No significant bone loss was observed. Discussion: BONE DENSITY IS LOW AT ONE OR MORE SKELETAL SITES. This patient's lowest T-score is low at one or more skeletal sites. It meets the World Health Organization's (WHO) criteria for ?low bone mass? (T-score between -1.0 and -2.5). The patient's 10-year risk of fracture as calculated by FRAX is less than the threshold where pharmacological therapy is recommended by the National Osteoporosis Foundation (NOF). However, all treatment decisions require clinical judgment and consideration of individual patient factors, including patient preferences, comorbidities, previous drug use, risk factors not captured in the FRAX model (e.g., frailty, falls, vitamin D deficiency, increased bone turnover, interval significant decline in bone density) and possible under or overestimation of fracture risk by FRAX. The patient should follow a healthful lifestyle (good nutrition with adequate calcium and vitamin D, and appropriate weight-bearing exercise). Follow-Up: Consider repeating this study in 2 to 3 years to reassess this patient's status, or sooner if there is some new clinical indication. Reported by: MIAH on 11/18/2024 8:18:00 AM. Reviewed, dictated and finalized at location A.
--- NOTE | ~2024-11-18 | CT_ITS ---
EXAMINATION: CT abdomen pelvis w con DATE: 11/18/2024 09:01 INDICATION: Rectal abscess. TECHNIQUE: Computed tomography (CT) of the abdomen and pelvis was performed with 100 mL Omnipaque 350 intravenous contrast. Automated exposure control and iterative reconstruction technique were employed. The dose-length product was 228.81 mGy-cm. COMPARISON: CT abdomen and pelvis 09/08/2024, 10/17/19 FINDINGS: The visualized portions of lung bases demonstrate mild atelectasis. No pleural effusion. The heart size is normal. No pericardial effusion. There are cysts in the liver measuring up to 12 mm. The gallbladder, spleen, pancreas, adrenal glands, and right kidney are normal. There is a 7.6 cm cyst in left kidney. There is diverticulosis of the colon without evidence of diverticulitis. There are no dilated loops of bowel. The appendix is normal. There are no pathologically enlarged lymph nodes. There is no free intraperitoneal fluid. There is mild lumbar spondylosis. IMPRESSION: 1. No abscess. Reviewed, dictated and finalized at location E. IMPRESSION: 1. No abscess.
--- OUTSIDE RECORDS SUMMARY | 2024-11-18 08:03 | XMS_ITS | Encounter Summary ---
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
--- OUTSIDE RECORDS SUMMARY | 2024-11-18 08:03 | XMS_ITS | Clinical Summary ---
Author Organization [facility] Address [address] [place] [address] Care Team Providers Care Flue Gas Analyst Name Role Phone Aydee Reese MD Primary [...] times a day 30 g 1 5 Active Active Problems Problem Noted Date Diagnosed [...] Department Care Team Description 09/22/2024 Results Follow-Up [facility] Gastroenterology at [address] [place] [address] Lakshmi Kern MD Surgical pathology 09/19/2024 11:00 AM CDT - 09/19/2024 11:30 AM CDT Surgery [address] [address] Lakshmi Kern MD COLON BIOPSY 09/19/2024 10:57 AM CDT Anesthesia Event [address] [address] Clinton Quintana DO Gill, Matthew, RODNEY 09/19/2024 9:57 AM CDT - 09/19/2024 12:44 PM CDT Hospital Encounter [address] [address] Lakshmi Kern MD Melena; Rectal abscess; Ulcerative proctitis with complication (HCC); History of colonic polyps Discharge Disposition: Discharge to home or self care 09/10/2024 Telephone [facility] Gastroenterology at [address] [place] [address] Andree Rucker from Last 3 Months Immunizations [...] on file 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 Gender Identity Not on file Sexual Orientation [...] Pneumococcal vaccine 65+ (2 of 2 - PCV20 or PCV21) 01/18/2016 2015 Well Visit 65+ 01/18/2020 DTaP/Tdap/Td [...] Biopsy) 09/19/2024 11:23 AM CDT Narrative PATHOLOGY [facility] - 09/22/2024 10:49 AM CDT EPIC results best viewed via link to PDF [facility] Department of Pathology [address] [place] [address] Note to Patients: This report may contain [...] Final Report Patient Name: MEGHANN TOVAR Address: [address] [place] [address]- Gender: F : 1955 (Age: 69) Service: Gastro Location: [facility] Hospital #: [id number] Patient Type: [facility] Taken: 09/19/2024 Received: 09/19/2024 Accessioned: 09/19/2024 [...] a single formalin filled container labeled MEGHANN CALDIERARO and ascending colon. It is 3 buck [...] determined by the Surgical Pathology Department at [facility] as part of an ongoing quality control inspector program and in compliance with federally mandated [...] characteristics determined by the Surgical Pathology Department [facility]. It has not been cleared or approved by the U. S. Food and Drug Administration. Note for decalcified specimens: This assay has not been validated on decalcified tissues. Results should be interpreted with caution given the possibility of false negativity on decalcified specimens Lakshmi Kern MD LAB PATHOLOGY ORDERABLES F inal Result Performing Organization Address City/State/[facility] Co de Phone Number PATHOLOGY [facility] [address] [phone] * Colonoscopy (09/19/2024 9:58 AM CDT) Anatomical Region Laterality Modality Other Narrative Procedure Note Lakshmi Kern MD - 09/19/2024 9:58 AM CDT [facility] Patient Name: Meghann Tovar Procedure Date: 09/19/2024 9:58 AM Date of : 1955 Admit Type: Outpatient Age: 69 Gender: Female Attending MD: Lakshmi Kern M.D. Room: [facility] ENDOSCOPY ROOM 1 Note Status: Finalized Patient [...] under direct vision. The Pediatric Colonoscope PCF-H190L [id number] was introducedthrough the anus and advanced to [...] 9:58 AM Procedure Code(s): --- Professional --- 41087, Colonoscopy, flexible; with biopsy, single or multiple Diagnosis Code(s): --- Professional --- Z86.010, Personal history of colonic polyps K64.8, Other hemorrhoids K57.30, Diverticulosis of large intestine without perforation orabscess without bleeding CPT copyright 2020 [employer]. All rights reserved. The codes documented in this report are preliminary and upon raw finish mill operator reviewmay be revised to meet current compliance requirements. Recognized by the [employer] for promoting quality in endoscopy Lakshmi Kern MD ENDOSCOPY PROCEDURES Final Result from Last 3 Months Insurance MEDICARE AET SENIOR [facility] MEDICARE AETNA [place] [address] MEDICARE [place] [address] Advance Directives For more information, please contact: [phone] * Full Code (Latest Code Status on File) Date Activated Date Inactivated Comments 09/19/2024 10:03 AM 09/19/2024 4:44 PM * Full Code Date Activated Date Inactivated Comments 09/19/2024 10:03 AM 09/19/2024 10:03 AM Care Teams Flue Gas Analyst Relationship Specialty Start Date End Date Aydee Reese MD [address] [place] [address] PCP - General 05/24/16 No, Physician 02/18/19
--- OUTSIDE RECORDS SUMMARY | 2024-11-18 08:03 | XMS_ITS | Encounter Summary ---
Author Organization [facility] Address [facility] [place] [address] Care Team Providers Care Local Tanker Truck Driver Name Role Phone Aydee Reese MD Primary Care Provider [phone] Te Patino MD Unavailable [phone] Mirta Choi APRN HAM MARKER-C Unavailable Miguelina Hanson MD Unavailable [phone] Meghann Chicas ANP-BC Unavailable [phone] Encounter Details Date Type Department Care Team (Late st Contact Info) Description 12/16/2019 Hospital Orders Only [facility] Anesthesia [address] [place] [address] Christi Vasquez Anesthesia Record Procedure Summary Procedure [...] documented as of this encounter Care Teams Local Tanker Truck Driver Relationship Specialty Start Date End Date Aydee Reese MD [address] [place] [address] PCP - General INTERNAL MEDICINE 09/02/15 Te Patino MD [address] [place] [phone] Moss Rn Flight CARDIOVASCULAR DISEASE 09/02/15 07/04/23 Mirta Choi APRN, HAM MARKER-C [address] [phone] NURSE PRACTITIONER 11/03/20 07/04/23 Miguelina Hanson MD [address] [address] INTERVENTIONAL CARDIOLOGY 07/05/23 Meghann Chicsa, ANP- [address] [place] [address] Nurse Practitioner NURSE PRACTITIONER ADULT HEALTH 07/05/23 documented as of this encounter
--- OUTSIDE RECORDS SUMMARY | 2024-11-18 08:03 | XMS_ITS | Clinical Summary ---
Author Organization [facility] Address [facility] [place] [address] Care Team Providers Care Bus Repair Supervisor Name Role Phone Aydee Reese MD Primary Care Provider [phone] Miguelina Hnason MD Unavailable [phone] Meghann Chicas [facility]- Unavailable [phone] Allergies No known active allergies Medications magnesium [...] 01/12/2021 Mixed hyperlipidemia 10/25/2019 Postoperative atrial fibrillation ([facility]) 04/30/2019 H/O mitral valve replacement 09/03/2015 GERD (gastroesophageal reflux disease) Mitral valve disease PFO (patent foramen ovale) ([facility]) Overview (10/26/2016): s/p closure Family History Medical [...] Comments Blood Pressure 124/72 01/21/2024 11:46 AM FROG OR OYSTER FARMWORKER Pulse 86 01/21/2024 11:46 AM FROG OR OYSTER FARMWORKER Temperature 36.5 C (97.7 F) 12/19/2019 5:09 AM CDT Respiratory Rate 20 12/21/2022 11:00 AM CDT Oxygen Saturation 100% 01/21/2024 11:46 AM FROG OR OYSTER FARMWORKER Inhaled Oxygen Concentration - - Weight 54 kg (119 lb) 01/21/2024 11:46 AM FROG OR OYSTER FARMWORKER Height 167.6 cm (5' 6) 01/21/2024 11:46 AM FROG OR OYSTER FARMWORKER Body Mass Index 19.21 01/21/2024 11:46 AM FROG OR OYSTER FARMWORKER Plan of Treatment Health Maintenance Due Date [...] 2:41 PM 12/19/2019 8:25 PM Care Teams Bus Repair Supervisor Relationship Specialty Start Date End Date Aydee Reese MD [address] [place] [phone] PCP - General INTERNAL MEDICINE 09/02/15 Miguelina Hanson MD [address] [place] [address] INTERVENTIONAL CARDIOLOGY 07/05/23 Meghann Chicas, ANP- [address] [place] [address] Nurse Practitioner NURSE PRACTITIONER ADULT HEALTH 07/05/23
--- OUTSIDE RECORDS SUMMARY | 2024-11-18 08:03 | XMS_ITS | Encounter Summary ---
Author Organization [facility] Address [address] [place] [address] Care Team Providers Care Apprentice Painter Hand Name Role Phone Aydee Reese MD Primary Care Provider Te Patino MD Unavailable Mirta Choi APRN, NP-C Unavailable Miguelina Hanson MD Unavailable [phone] Meghann Chicas ANP-BC Unavailable [phone] Encounter Details Date Type Department Care Team (Late st Contact Info) Description 10/23/2017 Abstract [facility] [address] [place] [phone] Te Patino MD [address] [place], [place] [...] documented as of this encounter Care Teams Apprentice Painter Hand Relationship Specialty Start Date End Date Aydee Reese MD [address] [place] [phone] PCP - General INTERNAL MEDICINE 09/02/15 Te Patino MD [address] [place] [phone] [place] Welfare Interviewer CARDIOVASCULAR DISEASE 09/02/15 07/04/23 Mirta Choi APRN, DOPE EDGER-C [address] [phone] NURSE PRACTITIONER 11/03/20 07/04/23 Miguelina Hanson MD [address] [phone] INTERVENTIONAL CARDIOLOGY 07/05/23 Meghann Chicas, ANP- [address] [place] [address] Nurse Practitioner NURSE PRACTITIONER ADULT HEALTH 07/05/23 documented as of this encounter
[2024-11-18 08:19] LABS: Alanine Aminotransferase 31 U/L (6-35); Albumin Level 4.6 g/dL (3.5-5.1); Alkaline Phosphatase 70 U/L (38-126); Anion Gap 6 mmol/L (4-12); Aspartate Amino Transferase 44 U/L (14-36); Bilirubin,Total 1.1 mg/dL (0.2-1.3); Blood Urea Nitrogen 21 mg/dL (7-17); Calcium 9.8 mg/dL (8.4-10.2); Carbon Dioxide 32 mmol/L (22-30); Chloride 103 mmol/L (98-107); Estimated Glomerular Filt Rate > 60; Glucose 96 mg/dL (65-110); Osmolality Calculated 295 mOsm/kg (285-295); Potassium 4.9 mmol/L (3.4-5.0); Sodium 141 mmol/L (137-145); Total Protein 7.0 g/dL (6.3-8.2)
== END 2024-11-18 07:43 | disposition home or self-care (01) ==
LOC: CHSIMG 07:44
PROVIDERS: PCP Internal Medicine; Visit Provider Internal Medicine
DX: R74.01 Elevation of levels of liver transaminase levels (principal); Z78.0 Asymptomatic menopausal state; K61.1 Rectal abscess; M85.89 Other specified disorders of bone density and structure, multiple sites
CPT/HCPCS: 36415; 74177; 77080; 80053; Q9967

== ENCOUNTER 2024-12-10 10:08 | Outpatient (CLI) | payer MEDICARE, SELFPAY ==
--- OUTSIDE RECORDS SUMMARY | 2024-12-10 10:56 | XMS_ITS | Clinical Summary ---
Author Organization [facility] Address [address] [place] [phone] Care Team Providers Care Fuel House Attendant Name Role Phone Aydee Reese MD [...] Department Care Team Description 09/22/2024 Results Follow-Up [facility] Gastroenterology at [address] [place] [address] Lakshmi Kern MD Surgical pathology 09/19/2024 11:00 AM CDT - 09/19/2024 11:30 AM CDT Surgery [address] [address] Lakshmi Kern MD COLON BIOPSY 09/19/2024 10:57 AM CDT Anesthesia Event [address] [address] Clinton Quintana DO Gill, Matthew, RODNEY 09/19/2024 9:57 AM CDT - 09/19/2024 12:44 PM CDT Hospital Encounter [address] [address] Lakshmi Kern MD Melena; Rectal abscess; Ulcerative proctitis with complication (HCC); History of colonic polyps Discharge Disposition: Discharge to home or self care 09/10/2024 Telephone [facility] Gastroenterology at [address] [place] [address] Andree Rucker from Last 3 Months Immunizations [...] on file 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 Gender Identity Not on file Sexual Orientation [...] Biopsy) 09/19/2024 11:23 AM CDT Narrative PATHOLOGY [facility] - 09/22/2024 10:49 AM CDT EPIC results best viewed via link to PDF [facility] Department of Pathology [address] [place] [address] Note to Patients: This report may contain [...] Final Report Patient Name: MEGHANN TOVAR Address: [address] [place] [address]- Gender: F : 1955 (Age: 69) Service: Gastro Location: [facility] Hospital #: [id number] Patient Type: [facility] Taken: 09/19/2024 Received: 09/19/2024 Accessioned: 09/19/2024 Reported: [...] determined by the Surgical Pathology Department at [facility] as part of an ongoing clinical quality rn program and in compliance with federally mandated [...] characteristics determined by the Surgical Pathology Department [facility]. It has not been cleared or approved by the U. S. Food and Drug Administration. Note for decalcified specimens: This assay has not been validated on decalcified tissues. Results should be interpreted with caution given the possibility of false negativity on decalcified specimens Lakshmi Kern MD LAB PATHOLOGY ORDERABLES F inal Result Performing Organization Address City/State/[facility] Co de Phone Number PATHOLOGY [facility] [address] [phone] * Colonoscopy (09/19/2024 9:58 AM CDT) Anatomical Region Laterality Modality Other Narrative Procedure Note Lakshmi Kern MD - 09/19/2024 9:58 AM CDT [facility] Patient Name: Meghann Tovar Procedure Date: 09/19/2024 9:58 AM Date of : 1955 Admit Type: Outpatient Age: 69 Gender: Female Attending MD: Lakshmi Kern M.D. Room: [facility] ENDOSCOPY ROOM 1 Note Status: Finalized [...] under direct vision. The Pediatric Colonoscope PCF-H190L [id number] was introducedthrough the anus and advanced to [...] 9:58 AM Procedure Code(s): --- Professional --- 99647, Colonoscopy, flexible; with biopsy, single or multiple Diagnosis Code(s): --- Professional --- Z86.010, Personal history of colonic polyps K64.8, Other hemorrhoids K57.30, Diverticulosis of large intestine without perforation orabscess without bleeding CPT copyright 2020 [employer]. All rights reserved. The codes documented in this report are preliminary and upon health safety specialist reviewmay be revised to meet current compliance requirements. Recognized by the [employer] for promoting quality in endoscopy Lakshmi Kern MD ENDOSCOPY PROCEDURES Final Result from Last 3 Months Insurance MEDICARE AET SENIOR [facility] MEDICARE AETNA SENIOR [place] [address] MEDICARE AETNA SENIOR SUPPLEMENT Advance Directives For more information, please contact: [phone] * Full Code (Latest Code Status on File) Date Activated Date Inactivated Comments 09/19/2024 10:03 AM 09/19/2024 4:44 PM * Full Code Date Activated Date Inactivated Comments 09/19/2024 10:03 AM 09/19/2024 10:03 AM Care Teams Fuel House Attendant Relationship Specialty Start Date End Date Aydee Reese MD [address] [place] [address] PCP - General 05/24/16 No, Physician 02/18/19
[2024-12-10 11:03] LABS: INR 3.3; Prothrombin Time 32.5 Seconds (9.50-12.1)
[2024-12-10 11:10] LABS: Alanine Aminotransferase 36 U/L (6-35); Albumin Level 4.8 g/dL (3.5-5.1); Alkaline Phosphatase 78 U/L (38-126); Anion Gap 7 mmol/L (4-12); Aspartate Amino Transferase 52 U/L (14-36); Bilirubin,Total 1.2 mg/dL (0.2-1.3); Blood Urea Nitrogen 19 mg/dL (7-17); Calcium 10.0 mg/dL (8.4-10.2); Carbon Dioxide 31 mmol/L (22-30); Chloride 103 mmol/L (98-107); Estimated Glomerular Filt Rate > 60; Glucose 94 mg/dL (65-110); Osmolality Calculated 294 mOsm/kg (285-295); Potassium 4.9 mmol/L (3.4-5.0); Sodium 141 mmol/L (137-145); Total Protein 7.7 g/dL (6.3-8.2)
== END 2024-12-10 10:09 | disposition home or self-care (01) ==
PROVIDERS: PCP Internal Medicine; Visit Provider Internal Medicine
DX: R94.5 Abnormal results of liver function studies (principal)
CPT/HCPCS: 36415; 80053; 85610

== ENCOUNTER 2025-01-20 07:40 | Outpatient (CLI) | payer MEDICARE, SELFPAY ==
--- OUTSIDE RECORDS SUMMARY | 2025-01-20 07:47 | XMS_ITS | Clinical Summary ---
Author Organization [facility] Address [address] [place] [id number] Care Team Providers Care Blanket Winder Operator Name Role Phone Aydee Reese MD Primary Care Provider [phone] No, Physician Unavailable Allergies No known active allergies Medications warfarin (COUMADIN) 5 mg tablet Take 6 mg by mouth daily 02/01/2019 Active alendronate (FOSAMAX) 70 mg tablet Take 1 tablet (70 mg total) by mouth 02/08/2019 Active aspirin 81 mg enteric coated tablet Take 1 tablet (81 mg total) by mouth daily Active butalbital-aceta minophen-caffein e [...] tablet (400 mg total) by mouth daily 06/21/2015 Active warfarin (COUMADIN) 1 mg tablet Take 1 tablet (1 mg total) by mouth daily 09/11/2024 Active Active Problems Problem Noted Date Diagnosed Date Melena 09/10/2024 Rectal abscess 09/10/2024 Ulcerative proctitis with complication History of colonic polyps 09/10/2024 Mitral valve disease 03/08/2021 GERD (gastroesophageal reflux disease) PFO (patent foramen ovale) 03/01/2021 Overview (03/01/2021): s/p closure Syncope 01/12/2021 Mixed hyperlipidemia 10/25/2019 Anemia 10/01/2015 Pelvic mass 10/01/2015 H/O mitral valve replacement 09/03/2015 Resolved Problems Problem Noted Date Diagnosed Date Resolved Date Postoperative atrial fibrillation 04/30/2019 12/10/2024 Encounters Date Type Department Care Team Description 01/07/2025 3:40 PM CDT Office Visit [facility] [address] [place] [address] [place] [address] Jade Carney MD Burnout of caregiver (Primary Dx); Depressed mood 12/10/2024 3:40 PM CDT Office Visit [facility] [address] [place] [address] [place] [address] Jade Carney MD At risk for polypharmacy (Primary Dx); Caregiver stress; Memory changes from Last 3 Months Immunizations Immunization Administration [...] on file 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 Gender Identity Not on file Sexual Orientation Not on file Obstetrics History Para Term AB IAB SAB Ectopic Multiple Livin g Live Births 3 3 3 3 Date Outcome GA Total Labor Labor/2nd/3rd Weight Sex Type Anes PTL Goldie A1 A5 Name Clin Term Term Term Last Filed Vital Signs Vital Sign Reading Time Taken Comments Blood Pressure 112/69 01/07/2025 3:25 PM CDT Pulse 99 01/07/2025 3:25 PM CDT Temperature 36.6 C (97.9 F) 12/10/2024 3:50 PM CDT Respiratory Rate 16 09/19/2024 12:00 PM CDT Oxygen Saturation 100% 01/07/2025 3:25 PM CDT Inhaled Oxygen Concentration - - Weight 53.5 kg (118 lb) 01/07/2025 3:25 PM CDT Height 167.6 cm (5' 6) 01/07/2025 3:25 PM CDT Body Mass Index 19.05 01/07/2025 3:25 PM CDT Plan of Treatment Health Maintenance Due [...] Name Priority Date/Time Associated Diagnosis Comments COLONOSCOPY 09/19/2024 9:58 AM CDT from Last 3 Months or Most Recently Relevant to Health Maintenance Results * Colonoscopy (09/19/2024 9:58 AM CDT) Anatomical Region Laterality Modality Other Narrative Procedure Note Lakshmi Kern MD - 09/19/2024 9:58 AM CDT [facility] Patient Name: Meghann Barbosa Procedure Date: 09/19/2024 9:58 AM Date of : 1955 Admit Type: Outpatient Age: 69 Gender: Female Attending MD: Lakshmi Kern M.D. Room: [facility] RO[facility] 1 Note Status: Finalized Patient [...] under direct vision. The Pediatric Colonoscope [id number] was introducedthrough the anus and advanced to [...] 9:58 AM Procedure Code(s): --- Professional --- 11519, Colonoscopy, flexible; with biopsy, single or multiple Diagnosis Code(s): --- Professional --- Z86.010, Personal history of colonic polyps K64.8, Other hemorrhoids K57.30, Diverticulosis of large intestine without perforation orabscess without bleeding CPT copyright 2020 [employer]. All rights reserved. The codes documented in this report are preliminary and upon organic lab worker reviewmay be revised to meet current compliance requirements. Recognized by the [place] [employer] for promoting quality in endoscopy Lakshmi Kern MD ENDOSCOPY PROCEDURES Final Result from Last 3 Months or Most Recently Relevant to Health Maintenance Insurance MEDICARE [facility] SENIOR SUPPLEMENT MEDICARE [facility]IOR SUPPLEMENT MEDICARE AET SENIOR [facility] [address] [facility] HMO/PPO Address: [address] [address] [place] [address] Advance Directives For more information, please contact: [phone] * Full Code (Latest Code Status on File) Date Activated Date Inactivated Comments 09/19/2024 10:03 AM 09/19/2024 4:44 PM * Full Code Date Activated Date Inactivated Comments 09/19/2024 10:03 AM 09/19/2024 10:03 AM Care Teams Blanket Winder Operator Relationship Specialty Start Date End Date Aydee Reese MD [address] [place] [address] PCP - General 05/24/16 No, Physician 02/18/19
[2025-01-20 08:45] LABS: Prothrombin Time 62.6 Seconds (9.50-12.1)
[2025-01-20 09:08] LABS: INR 6.8
[2025-01-20 09:22] LABS: Alanine Aminotransferase 28 U/L (6-35); Albumin Level 4.6 g/dL (3.5-5.1); Alkaline Phosphatase 81 U/L (38-126); Anion Gap 6 mmol/L (4-12); Aspartate Amino Transferase 43 U/L (14-36); Bilirubin,Total 1.8 mg/dL (0.2-1.3); Blood Urea Nitrogen 23 mg/dL (7-17); Calcium 9.3 mg/dL (8.4-10.2); Carbon Dioxide 31 mmol/L (22-30); Chloride 107 mmol/L (98-107); Estimated Glomerular Filt Rate > 60; Glucose 91 mg/dL (65-110); Osmolality Calculated 301 mOsm/kg (285-295); Potassium 4.0 mmol/L (3.4-5.0); Sodium 144 mmol/L (137-145); Total Protein 6.7 g/dL (6.3-8.2)
== END 2025-01-20 07:41 | disposition home or self-care (01) ==
LOC: CHSLAB 07:45
PROVIDERS: PCP Internal Medicine; Visit Provider Internal Medicine
DX: Z79.01 Long term (current) use of anticoagulants (principal)
CPT/HCPCS: 36415; 80053; 85610

== ENCOUNTER 2025-01-26 08:12 | Outpatient (RCR) | payer MEDICARE, SELFPAY ==
[2024-10-30 08:41] LABS: INR 5.0; Prothrombin Time 47.1 Seconds (9.50-12.1)
[2024-11-06 10:17] LABS: INR 2.6; Prothrombin Time 26.1 Seconds (9.50-12.1)
[2024-11-13 11:23] LABS: INR 3.2; Prothrombin Time 31.3 Seconds (9.50-12.1)
[2025-01-23 09:23] LABS: INR 1.4; Prothrombin Time 15.1 Seconds (9.50-12.1)
[2025-01-26 08:47] LABS: INR 1.5; Prothrombin Time 15.6 Seconds (9.50-12.1)
== END 2025-01-28 23:59 | disposition home or self-care (01) ==
LOC: CHSLAB 08:12
PROVIDERS: PCP Internal Medicine; Visit Provider Internal Medicine
DX: Z79.01 Long term (current) use of anticoagulants (principal)
CPT/HCPCS: 36415; 85610